=== PATIENT | female | born 1955 | race Caucasian/White ===

== ENCOUNTER 2017-04-18 08:31 | Outpatient (CLI) | payer BC, SELFPAY ==
--- NOTE | 2017-04-18 09:00 | RAD ---
LEFT HIP THREE VIEWS: History: Left hip pain. FINDINGS/IMPRESSION: Mild degenerative changes are seen. No fracture, dislocation, or bony destruction is identified. POS: [facility]
== END 2017-04-18 08:32 | disposition home or self-care (01) ==
LOC: RAD-FRANK 08:31
PROVIDERS: ATTEND Internal Medicine
DX: M25.552 Pain in left hip (principal); M16.12 Unilateral primary osteoarthritis, left hip

== ENCOUNTER 2018-06-29 17:08 | Emergency (ER) | payer BC ==
[~2018-06-29 17:08] MED LIST: ISOVUE-370 76%-LOCM 1 ML ONE
[2018-06-29] MEDS ORDERED: Acetaminophen 325 MG TAB ONE (17:39)
[2018-06-29 17:53] LABS: #Eosinphils 0.1 thou/uL (0.0-0.7); #Lymphocytes 1.3 thou/uL (1.20-3.40); #Monocytes 0.4 thou/uL (0.11-0.59); #Neutrophils 3.5 thou/uL (1.40-6.50); %Basophils 0.3 % (0.0-1.0); %Eosinophils 1.7 % (0.0-10.0); %Lymphocytes 24.5 % (21.0-51.0); %Monocytes 7.6 % (0.0-10.0); %Neutrophils 65.9 % (42.0-75.0); Hemoglobin 13.2 g/dL (12.0-16.0); Mean Corpuscular HGB CONC 34.9 g/dL (32.0-36.0); Mean Corpuscular Hemoglobin 30.3 pg (27.0-31.0); Mean Corpuscular Volume 86.9 fL (78.0-98.0); Mean Platelet Volume 6.7 fL (7.4-10.4); Platelet Count 238 thou/uL (130-400); RBC Distribution Width 12.7 % (11.5-14.5); Red Blood Cell (RBC) Count 4.36 mill/uL (4.20-5.40); White Blood Cell (WBC) Count 5.4 thou/uL (4.8-10.8)
[2018-06-29 18:15] LABS: ALT (SGPT) 16 U/L (8-55); AST (SGOT) 14 U/L (5-34); Albumin 4.2 g/dL (3.4-4.8); Alkaline Phosphatase 95 U/L (40-150); Anion Gap 12 mmol/L (10-20); BUN (Urea Nitrogen) 21 mg/dL (9.8-20.1); Bilirubin, Total 0.2 mg/dL (0.2-1.2); Calc. Creatinine Clearance 0 mL/min (70-130); Calcium 10.5 mg/dL (7.8-10.44); Carbon Dioxide 26 mmol/L (23-31); Chloride 104 mmol/L (98-107); Estimated GFR-MDRD 71; Globulin 2.7 g/dL (2.4-3.5); Glucose 104 mg/dL (80-115); Potassium 3.6 mmol/L (3.5-5.1); Protein, Total 6.9 g/dL (6.0-8.3); Sodium 138 mmol/L (136-145)
--- NOTE | 2018-06-29 19:50 | CT ---
PRE AND POST CONTRAST CT SOFT TISSUE NECK: History: Evaluate for left carotid swelling. Technique: Pre and post contrast enhanced CT images of soft tissue neck obtained. FINDINGS: There is a 1.3 cm left upper lobe and 1.5 cm right upper lobe lung parenchymal mass. There is extensi ve emphysematous and bullous changes seen in the upper lobes of the lungs. There is a 2.6 x 3.8 cm mass with necrosis in the left hilar region. Additional aortopulmonary window lymphadenopathy also seen. There is a right lung parenchymal mass adjacent to the superior vena cava , diameter measuring 2.8 x 3.2 cm. There is a large right jugular digastric lymph node measuring 2.4 x 2.0 cm with central areas of necr osis. These are all concerning for possible metastatic disease. There is extensive heterogeneity seen in the right and left thyroid lobes. Thyroid malignancy cannot be excluded. There is mild left platysmal thickening. Some edema is seen superficial and deep to the left platysma . The left parotid gland is minimally asymmetrically enlarged and mildly edematous compared to the ri ght parotid gland. No definite evidence of sialolith seen. No definite evidence of significant paroti d mass is seen. Mild parotiditis cannot be excluded. IMPRESSION: 1. Right jugular digastric lymphadenopathy with extensive mediastinal and lung parenchymal masses see n, right dural based intracranial lesion highly concerning for metastisis. In addition, there is hete rogeneity seen in the thyroid lobes bilaterally. ENT and oncologic consultation recommended. POS: [facility]
== END 2018-06-29 21:12 | disposition home or self-care (01) ==
LOC: ERS 17:08
DX: K11.20 Sialoadenitis, unspecified (principal); R91.8 Other nonspecific abnormal finding of lung field; E04.1 Nontoxic single thyroid nodule; I10 Essential (primary) hypertension; E78.5 Hyperlipidemia, unspecified; F17.210 Nicotine dependence, cigarettes, uncomplicated
CPT/HCPCS: 70492; 80053; 85025; 96360; 96361; 99406; Q9966

== ENCOUNTER 2018-06-30 15:25 | Outpatient (CLI) | payer BC ==
--- NOTE | 2018-06-30 16:28 | ULT ---
SOFT TISSUE NECK ULTRASOUND: HISTORY: Enlarged right neck lymph node. Examination is requested to assess for possible access for biopsy vi a ultrasound guidance. COMPARISON: None. CORRELATION: Postcontrast soft tissue neck CT from 06/29/2018. FINDINGS: Targeted sonographic imaging of the right neck does demonstrate the lymph node of concern and is amen able to ultrasound-guided biopsy. The lymph node measures 2.2 x 3 x 2.6 cm. IMPRESSION: Sonographic evidence of enlarged right neck lymph node, which is amenable to ultrasound guided biopsy . POS: [facility]
== END 2018-06-30 15:26 | disposition home or self-care (01) ==
LOC: BICULT 15:25
PROVIDERS: ATTEND Internal Medicine Hematology & Oncology
DX: Z13.89 Encounter for screening for other disorder (principal); R59.0 Localized enlarged lymph nodes
CPT/HCPCS: 76536

== ENCOUNTER 2018-07-07 08:22 | Day surgery (SDC) | payer BC ==
[2018-07-04 15:25] VITALS: BMI 24.7
[2018-07-07 09:23] VITALS: BP 112/70; TEMP 98.1
[2018-07-07] MEDS ORDERED: Sodium Bicarbonate 2.5 MEQ/5 ML VIAL ONE (09:26)
[2018-07-07] MEDS ORDERED: Lidocaine 1% PF 5 ML VIAL ONE (09:26)
--- NOTE | 2018-07-07 12:10 | ULT ---
ULTRASOUND GUIDED FNA MASS RIGHT NECK: HISTORY: CT neck from 06/29/2018 revealed a right submandibular mass, probable adenopathy. Biopsy of this mas s is requested. FINDINGS: Ultrasound of the neck reveals an enlarged heterogeneous thyroid gland, which corresponds to the CT f indings. In the right submandibular region, there is a circumscribed mass, measuring 2.5 cm, with he terogeneity, suggesting some internal necrosis. This corresponds to the enlarged lymph node seen on CT. This mass is sampled using the FNA technique, under ultrasound guidance. Four 25 gauge FNA samples were obtained through the mid portion of this mass, under ultrasound confir mation, and was given to pathology at the bedside. A 5th pass was preformed using a 20 gauge Uma needle. Increased cellular material was obtained using the Uma pass. Dr. Nolasco was present at the bedside and evaluated the tissue for adequacy. There is evidence of ne crosis; however, adequate lesional tissue was obtained. PROCEDURE IN DETAIL: After evaluating the neck with ultrasound, the right neck was prepped and draped in a sterile manner. Local anesthesia was then administered using Lidocaine and bicarbonate under ultrasound guidance. The right submandibular mass was then sampled using the FNA technique, with a 25 gauge needle. Ultra sound confirmed presence of the needle within the mid portion of the mass. Four samples were obtaine d, with each sample using ultrasound guidance and confirmation. A 5th sample was obtained using a 20 gauge Uma needle. Post procedure ultrasound showed no hematoma. The patient tolerated the procedure well, and there were no problems or complications. POS: [facility]
== END 2018-07-07 10:00 | disposition home or self-care (01) ==
LOC: ULT 08:22
PROVIDERS: ATTEND Radiology Diagnostic Radiology
PROC: BW4FZZZ Ultrasonography of Neck (ICD-10-PCS; principal; 2018-07-07)
PROC: 07B13ZX Excision of Right Neck Lymphatic, Percutaneous Approach, Diagnostic (ICD-10-PCS; principal; 2018-07-07)
DX: C96.9 Malignant neoplasm of lymphoid, hematopoietic and related tissue, unspecified (principal); I10 Essential (primary) hypertension; E04.9 Nontoxic goiter, unspecified; E78.00 Pure hypercholesterolemia, unspecified; F41.9 Anxiety disorder, unspecified; F32.9 Major depressive disorder, single episode, unspecified; F17.210 Nicotine dependence, cigarettes, uncomplicated; M19.90 Unspecified osteoarthritis, unspecified site; Z90.5 Acquired absence of kidney; Z98.890 Other specified postprocedural states; Z79.899 Other long term (current) drug therapy
CPT/HCPCS: 38505; 88172; 88173; 88177; 88305; 88341; 88342; J2001

== ENCOUNTER 2018-07-21 09:51 | Outpatient (CLI) | payer BC ==
--- NOTE | 2018-07-21 11:27 | CT ---
FCT thorax with contrast CT abdomen with contrast CT pelvis with contrast 07/21/2018 HISTORY: 63-year-old female with malignant neoplasm of left kidney. Restaging. COMPARISON: No prior CT of chest. There is prior CT of abdomen and pelvis of 07/11/2013. FINDINGS: Cervicothoracic junction: Left and right lobes of thyroid gland are markedly enlarged by multiple nod ules. Lungs: Large bilateral upper lobe bullae, right greater than left. Also centrilobular emphysematous c hanges. Multiple metastatic noncalcified pulmonary nodules bilaterally. The largest mass is a 3 x 2 x 3.5 cm right lower lobe pulmonary mass abutting the right lower lobe bronchial and arterial branches . Nearby there is a right hilar or perihilar 2.2 x 2.2 x 2.2 cm mass. There are numerous other more p eripheral bilateral pulmonary nodules. . Pleura: No pneumothorax or hemothorax. Thoracic aorta: No dissection or rupture. Mediastinum: Several metastatic mediastinal lymph nodes. This includes a 2.5 x 1.5 x 2.5 cm malignant node in the prevascular space. A large, necrotic 4.5 x 2.5 x 3.5 cm mass posterior to the left nicholas tem bronchus. Liver: No metastatic lesions identified. Spleen: Normal Pancreas: Multifocal nodular appearance of the tail, questionable for multiple metastatic masses. No ductal dilation.. Kidneys: Left kidney absent. Surgical clips in left renal bed. No hydronephrosis in right kidney. 2 h eterogeneously enhancing solid right renal tumors adjacent to each other at the midpole. The anterior one is 4.5 x 4.5 x 5.5 cm. The lateral one is 5 x 4 x 4 cm. Adrenals: Large 3.5 x 4.5 x 4 cm necrotic right adrenal tumor. Left adrenal gland not visualized.. Bladder: Decompressed. Abdominal aorta: No dissection or rupture. Small bowel: No dilation. Colon: Multiple sigmoid diverticula. No adjacent fat stranding. Free air: None. Free fluid: None. Skeleton: No obvious osseous metastasis identified. IMPRESSION: 1. Extensive pulmonary metastases. 2. Large mediastinal and hilar metastatic malignant lymphadenopathy. 3. Moderately large, necrotic right adrenal malignant tumor. Probably metastasis. 4. There are 2 large malignant appearing right renal tumor masses: Either primary renal cell carcinom as or metastases. 5. Multinodular, heterogeneous attenuation appearance of pancreatic tail, which could represent metas tases or primary neoplasm. 6. Severe panlobular emphysema. 7. Thyromegaly due to numerous nodules. This could be multinodular goiter or thyroid metastases.
--- NOTE | 2018-07-21 14:37 | NM ---
RADIONUCLIDE BONE SCAN: HISTORY: Malignant neoplasm left kidney with metastatic disease. FINDINGS: Heterogeneous uptake involving each shoulder, knee, and ankle has the appearance of degenerative catnu ges. There is also heterogeneous uptake of the lower cervical spine on the posterior images, overlyin g the facets. Left kidney is surgically absent. Uptake within the urinary bladder partially obscures the superior pubic rami. IMPRESSION: Degenerative changes of the cervical spine and peripheral joints. No scintigraphic evidence of blasti c osseous metastasis. Transcribed Date/Time: 07/21/2018 2:59 PM
[2018-07-21] MEDS ORDERED: Iopamidol 370 76% 100 ML VIAL ONE (14:45)
== END 2018-07-21 09:52 | disposition home or self-care (01) ==
LOC: CT 09:51
PROVIDERS: ATTEND Internal Medicine Hematology & Oncology
DX: C64.9 Malignant neoplasm of unspecified kidney, except renal pelvis (principal); C78.00 Secondary malignant neoplasm of unspecified lung; R59.0 Localized enlarged lymph nodes; C79.70 Secondary malignant neoplasm of unspecified adrenal gland; J43.9 Emphysema, unspecified; E01.0 Iodine-deficiency related diffuse (endemic) goiter; M47.812 Spondylosis without myelopathy or radiculopathy, cervical region
CPT/HCPCS: 71260; 74177; 78306; A9503

== ENCOUNTER 2018-07-25 05:50 | Day surgery (SDC) | payer BC ==
[2018-07-24 11:39] VITALS: BMI 24.3
--- NOTE | 2018-07-24 14:45 | HP ---
HISTORY OF PRESENT ILLNESS: Milka Gonzalez is a 63-year-old female patient with metastatic renal cell carcinoma status post left nephrectomy in 2004, now with metastatic renal cell carcinoma by lymph node biopsy submandibular right, with recent scans revealing tumor in the right kidney, neck, thyroid, bilateral pulmonary. The patient is an [employer]. She works with nursing homes. Plan is to place a MediPort low-profile IV sedation local. PAST MEDICAL HISTORY: Hypertension, elevated cholesterol, arthritis, anxiety, depression, left renal cell carcinoma status post left nephrectomy in 2004. PAST SURGICAL HISTORY: Left nephrectomy 2004, left flank incision, 1975 and 1977. SOCIAL HISTORY: Tobacco less than 1/2 pack per day, alcohol rarely socially. MEDICATIONS: 1. Xanax. 2. Amlodipine. 3. Ambien. 4. Ultram. ALLERGIES: NONE. FAMILY HISTORY: Noncontributory. REVIEW OF SYSTEMS: Noncontributory. Up to date on colonoscopies. PHYSICAL EXAMINATION: VITAL SIGNS: 158 pounds, 5 feet 7 inches, 137/68, 77, 96.8 degrees. HEAD, EARS, EYES, NOSE AND THROAT: Unremarkable. LUNGS: Clear to auscultation. CARDIAC: Regular rate and rhythm without murmur or gallop. ABDOMEN: Soft and nontender. Left upper quadrant flank incision from the nephrectomy, well healed. No evident hernias. ASSESSMENT: Metastatic renal cell carcinoma. PLAN: MediPort placement. She understands the risks, benefits, and consents. She is followed by Dr. Garrett. She is also followed by Dr. Villalobos. Job ID: [id number]
[2018-07-25] MEDS ORDERED: PROPOFOL 20 ML ONE (06:22)
[2018-07-25] MEDS ORDERED: Lidocaine 2% PF 5 ML VIAL ONE (06:40)
[2018-07-25] MEDS ORDERED: Heparin 5,000 UNITS/ML VIAL ONE (06:40)
[2018-07-25] MEDS ORDERED: Bupivacaine HCl 0.5%/Epinephrine 1:200,000/PF 30 ml Vial ONE (06:40)
--- NOTE | 2018-07-25 08:17 | RAD ---
RADIOGRAPH CHEST 1 VIEW: Date: 07/25/2018. Time: 7:58 a.m. HISTORY: A 63-year-old female status post MediPort placement. COMPARISON: 08/14/2010. FINDINGS: There is a new right subclavian implantable vascular access port with distal tip overlying the SVC. No evidence of pneumothorax. Hyperinflation bilaterally, and hyperlucency of right upper lobe, consi stent with COPD. No consolidation. Cardiac size at upper limits of normal. IMPRESSION: 1. Right-sided implantable vascular access port placement. 2. Emphysema. 3. No pneumothorax. JN [] POS: [facility]
--- NOTE | 2018-07-25 13:18 | OP ---
DATE OF PROCEDURE: 07/25/2018 PREOPERATIVE DIAGNOSIS: Metastatic renal cell carcinoma in need of antineoplastic chemotherapy access. POSTOPERATIVE DIAGNOSIS: Metastatic renal cell carcinoma in need of antineoplastic chemotherapy access. PROCEDURE PERFORMED: Right subclavian vein low-profile MediPort. ANESTHESIA: TIVA, local of 0.5% Marcaine with epinephrine 30 mL mixed with 2% Xylocaine. Fluoroscopy used. DESCRIPTION OF PROCEDURE: The patient was taken to the operating room, where under intravenous sedation, neck and chest were prepared with ChloraPrep and draped in routine fashion. Local anesthetic mixture was infiltrated into the skin and subcutaneous tissue about the operative site. Trocar catheter was cannulated in the subclavian vein. Right infraclavicular approach and J-wire threaded, trocar catheter removed, skin was incised and enlarged sharply creating a pocket for the MediPort, low-profile. Dilator and Peel-Away sheath were placed over the J-wire in superior vena cava. Dilator and J-wire were removed. Catheter was placed through the Peel-Away sheath. Fluoroscopically, the catheter tip was placed in optimal position as a Peel-Away sheath was removed. Catheter tailored to length, connected to the MediPort, placed in subcutaneous pocket and secured with 2 interrupted sutures of 3-0 Prolene and subcutaneous tissue was approximated with 3-0 Monocryl, skin with subdermal 4-0 Monocryl. Final fluoroscopic images revealed good MediPort and line placement. MediPort was accessed with a Walsh needle, aspirated blood, flushed with heparinized saline solution. Job ID: [id number]
[2018-07-25] MEDS ORDERED: PROPOFOL 200 MG/20 ML VIAL ONE (17:11)
[2018-07-25] MEDS ORDERED: Lidocaine 1% PF 5 ML VIAL ONE (17:11)
== END 2018-07-25 08:45 | disposition home or self-care (01) ==
LOC: SDC 05:50
PROVIDERS: ATTEND Specialist
PROC: 0JH63WZ Insertion of Totally Implantable Vascular Access Device into Chest Subcutaneous Tissue and Fascia, Percutaneous Approach (ICD-10-PCS; principal; 2018-07-25)
DX: C64.2 Malignant neoplasm of left kidney, except renal pelvis (principal); C78.02 Secondary malignant neoplasm of left lung; C78.01 Secondary malignant neoplasm of right lung; C79.01 Secondary malignant neoplasm of right kidney and renal pelvis; C77.0 Secondary and unspecified malignant neoplasm of lymph nodes of head, face and neck; F17.210 Nicotine dependence, cigarettes, uncomplicated; I10 Essential (primary) hypertension; E78.00 Pure hypercholesterolemia, unspecified; M19.90 Unspecified osteoarthritis, unspecified site; F41.9 Anxiety disorder, unspecified; F32.9 Major depressive disorder, single episode, unspecified; G47.00 Insomnia, unspecified; E78.2 Mixed hyperlipidemia; Z79.899 Other long term (current) drug therapy; Z88.8 Allergy status to other drugs, medicaments and biological substances; Z90.5 Acquired absence of kidney
CPT/HCPCS: 36415; 71045; 80053; 82248; 83615; 84100; 84436; 84443; 84550; C1788; J0670; J0690; J1642; J1644; J2001; J2704

== ENCOUNTER 2018-10-09 10:56 | Outpatient (CLI) | payer BC ==
--- NOTE | 2018-10-09 11:22 | RAD ---
EXAM: Two views chest PROVIDED CLINICAL HISTORY: Cough, metastatic lung disease. Shortness of breath. COMPARISON: 07/25/2018. FINDINGS: A right subclavian Mediport catheter remains in place unchanged in position. The cardiac silhouette a nd pulmonary vasculature are within normal limits. Scattered mild chronic lung changes are again seen, and there are emphysematous changes again seen within the upper lobes bilaterally greater on th e right. There is a pulmonary nodule seen within the region of the lingula and nodular densities seen at each lung base suggesting pulmonary nodules related to metastatic disease. There is masslike prominence of each hilar region as well as the right infrahilar region likely related to lymphadenopathy. No obvious lytic or sclerotic osseous lesion is appreciated. Degenerative changes no nargis in the spine. Vascular calcific lesions are seen in thoracic aorta. Surgical clips overlie the left upper quadrant. IMPRESSION: 1. Metastatic disease with bilateral pulmonary nodules at each lung base and in the lingula with asso ciated bilateral hilar lymphadenopathy in addition to a mass in the right infrahilar region also possibly represent an enlarged lymph node versus a parenchymal mass. 2. Chronic lung changes and COPD.
== END 2018-10-09 10:57 | disposition home or self-care (01) ==
LOC: BICRAD 10:56
PROVIDERS: ATTEND Internal Medicine Hematology & Oncology
DX: R06.02 Shortness of breath (principal); C64.2 Malignant neoplasm of left kidney, except renal pelvis
CPT/HCPCS: 36415; 71046; 80053; 82248; 83615; 84100; 84436; 84443; 84550

== ENCOUNTER 2018-10-27 08:41 | Outpatient (CLI) | payer BC ==
--- NOTE | 2018-10-27 10:32 | CT ---
CT chest with IV contrast CT abdomen and pelvis with IV contrast HISTORY: Left renal neoplasm with nephrectomy. Metastasis to right kidney. Restaging. COMPARISON: 07/21/2018. FINDINGS: Lungs remain hyperinflated. Multiple masses throughout each lung are again demonstrated. Ch est is unchanged in size and appearance from the previous exam. The largest are at the right infrahilar region, measuring 2.9 and 2.2 cm greatest diameters. Widespread mediastinal adenopathy is also stable. The largest and most prominent areas remain necroti c centrally. Largest is at the left infrahilar level, measuring up to 4.3 cm x 2.4 cm greatest diameters. Heterogeneous enlargement of the inferior aspect of the thyroid gland with substernal extension is si milar in appearance to the prior study and likely represents a goiter. Nodular masslike prominence of the pancreatic tail is unchanged in size and appearance, measuring 3.2 cm greatest oblique diameter on the axial images. Left kidney is surgically absent. The partially necrotic mass at the left adrenal gland now measures 4.2 cm length by 4.3 cm width by 3 .6 cm depth (previously 4.5 cm x 4.0 cm x 3.5 cm). The more superolateral portion of the partially necrotic right superior pole renal masses is now 5.5 cm x 4.5 cm x 4.7 cm (previously 5.0 cm x 4.1 cm x 4.0 cm). The more inferior and anterior mass is now 4.6 cm x 4.3 cm 4.2 cm (4 cm x 4.4 cm x 4.2 cm). Slightly enlarged lymph nodes within the retroperitoneum are unchanged. Urinary bladder is decompress ed. No evidence of bowel obstruction. Degenerative changes lumbar spine. IMPRESSION: Slight interval enlargement of the partially necrotic right renal masses, as detailed abo ve. Extensive metastatic disease involving the lungs, mediastinal lymph nodes, and left adrenal gland and the heterogeneous low density pancreatic mass are stable. No new abnormalities are demonstrated.
[2018-10-27] MEDS ORDERED: ISOVUE-370 76%-LOCM 1 ML ONE (13:40)
== END 2018-10-27 08:42 | disposition home or self-care (01) ==
LOC: BICCT 08:41
PROVIDERS: ATTEND Internal Medicine Hematology & Oncology
DX: C64.2 Malignant neoplasm of left kidney, except renal pelvis (principal); C78.00 Secondary malignant neoplasm of unspecified lung; C79.72 Secondary malignant neoplasm of left adrenal gland; C77.1 Secondary and unspecified malignant neoplasm of intrathoracic lymph nodes; K86.89 Other specified diseases of pancreas; N28.89 Other specified disorders of kidney and ureter
CPT/HCPCS: 71260; 74177; Q9966

== ENCOUNTER 2018-11-24 21:16 | Inpatient (IN) | payer BC ==
[2018-11-24] MEDS ORDERED: Levothyroxine Sodium 25 MCG TAB PO SCH (22:15)
[2018-11-24 23:44] LABS: Anion Gap 13 mmol/L (10-20); BUN (Urea Nitrogen) 10 mg/dL (9.8-20.1); Calc. Creatinine Clearance 0 mL/min (70-130); Calcium 9.2 mg/dL (7.8-10.44); Carbon Dioxide 20 mmol/L (23-31); Chloride 86 mmol/L (98-107); Estimated GFR-MDRD Greater than 90; Magnesium 1.6 mg/dL (1.6-2.6); Potassium 3.9 mmol/L (3.5-5.1)
[2018-11-25 00:04] LABS: Glucose 57 mg/dL (80-115); Sodium 115 mmol/L (136-145)
--- NOTE | 2018-11-25 00:24 | CON ---
DATE OF CONSULTATION: REASON FOR CONSULTATION: Hyponatremia. HISTORY OF PRESENT ILLNESS: A 63-year-old female who presented to the hospital with feeling weak, was noted to have a sodium of 115 and I was consulted. The patient has been told to eat excessive salt diet to help with hyponatremia. The patient has a normal creatinine. The patient is known to have malignancy and has a very poor appetite and has not had any protein intake. PAST MEDICAL HISTORY: Significant for metastatic renal cell carcinoma on immunotherapy, metastatic renal cell cancer, history of hypertension, history of hyperlipidemia, history of , history of nephrectomy of the left side, history of chronic hyponatremia, history of hypothyroidism. SOCIAL HISTORY: No alcohol or drug use. FAMILY HISTORY: Negative for ESRD. ALLERGIES: REVIEWED. REVIEW OF SYSTEMS: A 15-point review of system was performed negative except for noted above. GENERAL: HEAD: NECK: No swelling or lumps. NOSE: No epistaxis or discharge. EYES: No diplopia or pain. RESPIRATORY: CARDIOVASCULAR: GASTROINTESTINAL: /[employer] TECHNICIAN: MUSCULOSKELETAL: No joint pain. NEUROPSYCHIATIC SYSTEMS: No suicidal ideation. No ideation. SKIN: Denies any rash or ulcer. CONSTITUTIONAL: No fever or chills. General: The patient is awake and alert. VITAL SIGNS: Afebrile, pulse 83, breathing 16, blood pressure 105/75. PHYSICAL EXAMINATION: GENERAL APPEARANCE AND MENTAL STATUS: Fair. HEAD/NECK: Normocephalic. Atraumatic. EYES: EOMI. No deformity. EARS: Clear. No ulcers. NOSE: Intact. No lesions. MOUTH: Clear. No discharge. THROAT: Clear. No exudate. LUNGS: Clear. No crackles. CARDIAC: S1, S2. No rub. ABDOMEN: Benign. Bowel sounds positive. GENITALIA/RECTUM: Breen absent. BACK/EXTREMITIES: Edema 0+. NEUROLOGICAL: Alert and motor intact. SKIN: LYMPHATICS: NEUROLOGICAL: The patient is intact. LABORATORY DATA: Labs show sodium 115, creatinine is 0.7. CKD stage 2 stable, hyponatremia, most likely because of poor protein intake as well as SIADH. We would recommend 800 mL fluid restriction and checking sodium every 6 hours. We would not correct sodium more than 6 mEq in 24 hours. Please call me, if the sodium corrects. ASSESSMENT: 1. Hypertension, stable. 2. Medication based on glomerular filtration rate, appropriate. 3. Hypothyroidism. I would recommend extra dose of Synthroid and rechecking TSH in the morning. 4. Risks versus benefits . Primary care team has been advised of the above recommendations. Job ID: [id number]
[2018-11-25] MEDS ORDERED: Ondansetron ODT 8 MG TAB PO PRN (00:29)
[2018-11-25] MEDS ORDERED: Zolpidem Tartrate 5 MG TAB PO PRN (00:30)
[2018-11-25] MEDS: traMADol HCl 50 MG TAB PO SCH ×3 (02:32→20:22)
[2018-11-25 05:22] LABS: Sodium 114 mmol/L (136-145)
[2018-11-25] MEDS ORDERED: Levothyroxine Sodium 25 MCG TAB PO SCH (06:00)
[2018-11-25 08:56] LABS: #Eosinphils 0.3 thou/uL (0.0-0.7); #Lymphocytes 1.3 thou/uL (1.20-3.40); #Monocytes 0.5 thou/uL (0.11-0.59); #Neutrophils 2.3 thou/uL (1.40-6.50); %Eosinophils 6.2 % (0.0-10.0); %Lymphocytes 29.4 % (21.0-51.0); %Monocytes 11.6 % (0.0-10.0); %Neutrophils 51.8 % (42.0-75.0); Hemoglobin 12.1 g/dL (12.0-16.0); Mean Corpuscular HGB CONC 35.7 g/dL (32.0-36.0); Mean Corpuscular Hemoglobin 28.9 pg (27.0-31.0); Mean Corpuscular Volume 80.9 fL (78.0-98.0); Mean Platelet Volume 5.9 fL (7.4-10.4); Platelet Count 268 thou/uL (130-400); RBC Distribution Width 14.2 % (11.5-14.5); White Blood Cell (WBC) Count 4.4 thou/uL (4.8-10.8)
[2018-11-25] MEDS: Tolvaptan 15 MG TAB PO SCH (08:58)
[2018-11-25] MEDS ORDERED: ALPRAZolam 0.5 MG TAB PO SCH (09:00)
[2018-11-25 09:21] LABS: Anion Gap 13 mmol/L (10-20); BUN (Urea Nitrogen) 9 mg/dL (9.8-20.1); Calc. Creatinine Clearance 0 mL/min (70-130); Calcium 9.9 mg/dL (7.8-10.44); Carbon Dioxide 23 mmol/L (23-31); Chloride 84 mmol/L (98-107); Estimated GFR-MDRD 88; Glucose 63 mg/dL (80-115); Potassium 4.1 mmol/L (3.5-5.1)
[2018-11-25 09:29] LABS: Sodium 116 mmol/L (136-145)
[2018-11-25 09:37] LABS: Free T4 (Free Thyroxine) 0.51 ng/dL (0.70-1.48); Thyroid Stimulating Hormone 27.7808 uIU/mL (0.35-4.94)
[2018-11-25] MEDS ORDERED: traMADol HCl 50 MG TAB PO SCH (10:45)
[2018-11-25 12:24] LABS: Anion Gap 10 mmol/L (10-20); BUN (Urea Nitrogen) 9 mg/dL (9.8-20.1); Calc. Creatinine Clearance 91 mL/min (70-130); Carbon Dioxide 23 mmol/L (23-31); Chloride 87 mmol/L (98-107); Estimated GFR-MDRD 84; Glucose 72 mg/dL (80-115); Potassium 3.8 mmol/L (3.5-5.1)
[2018-11-25 12:45] LABS: Sodium 116 mmol/L (136-145)
--- NOTE | 2018-11-25 16:35 | PRG ---
DATE OF SERVICE: 11/25/2018 SUBJECTIVE: A 63-year-old female being seen for hyponatremia. The patient denies nausea, vomiting, or chest pain. OBJECTIVE: CONSTITUTIONAL: The patient is awake and alert. VITAL SIGNS: Afebrile, pulse 82, breathing 16, and blood pressure 107/71. GENERAL APPEARANCE AND MENTAL STATUS: Fair. HEAD/NECK: Normocephalic. Atraumatic. EYES: EOMI. No deformity. EARS: Clear. No ulcers. NOSE: Intact. No lesions. MOUTH: Clear. No discharge. THROAT: Clear. No exudate. LUNGS: Clear. No crackles. CARDIAC: S1, S2. No rub. ABDOMEN: Benign. Bowel sounds positive. GENITALIA/RECTUM: Breen absent. BACK/EXTREMITIES: Edema 0+. NEUROLOGICAL: Alert and motor intact. SKIN: LYMPHATICS: LABORATORY DATA: Labs reviewed. ASSESSMENT AND PLAN: Hyponatremia, stable. Hypo-osmolality, stable. Hypothyroidism, continue Synthroid. Medication based on GFR appropriate. Job ID: [id number]
[2018-11-25 18:20] LABS: Sodium 120 mmol/L (136-145)
[2018-11-25] MEDS: Mirtazapine 15 MG TAB PO SCH (20:20)
[2018-11-25] MEDS: ALPRAZolam 0.5 MG TAB PO PRN (20:20)
[2018-11-25 23:12] LABS: Sodium 120 mmol/L (136-145)
[2018-11-26] MEDS: Levothyroxine Sodium 50 MCG TAB PO SCH (06:41)
[2018-11-26] MEDS: traMADol HCl 50 MG TAB PO SCH ×2 (08:32→20:25)
[2018-11-26] MEDS: Tolvaptan 15 MG TAB PO SCH (08:33)
[2018-11-26 10:04] LABS: Anion Gap 13 mmol/L (10-20); BUN (Urea Nitrogen) 12 mg/dL (9.8-20.1); Calc. Creatinine Clearance 77 mL/min (70-130); Calcium 10.3 mg/dL (7.8-10.44); Carbon Dioxide 23 mmol/L (23-31); Chloride 90 mmol/L (98-107); Estimated GFR-MDRD 71; Glucose 77 mg/dL (80-115); Sodium 122 mmol/L (136-145)
--- NOTE | 2018-11-26 11:17 | PRG ---
DATE OF SERVICE: 11/26/2018 SUBJECTIVE: A 63-year-old female, being seen for hyponatremia. The patient denies nausea, vomiting, or chest pain. OBJECTIVE: GENERAL: The patient is awake and alert. VITAL SIGNS: Afebrile, pulse 84, breathing 16, blood pressure 104/62. GENERAL APPEARANCE AND MENTAL STATUS: Fair. HEAD/NECK: Normocephalic. Atraumatic. EYES: EOMI. No deformity. EARS: Clear. No ulcers. NOSE: Intact. No lesions. MOUTH: Clear. No discharge. THROAT: Clear. No exudate. LUNGS: Clear. No crackles. CARDIAC: S1, S2. No rub. ABDOMEN: Benign. Bowel sounds positive. GENITALIA/RECTUM: Breen absent. BACK/EXTREMITIES: Edema 0+. NEUROLOGICAL: Alert and motor intact. SKIN: LYMPHATICS: LABORATORY DATA: Show sodium 122. ASSESSMENT AND RECOMMENDATIONS: Chronic kidney disease, stage 2, stable. Hyponatremia, improving. Recommend 1.2 L fluid restriction. Medication based on GFR, appropriate. No indication for hypertonic saline. No need for further [facility], just continue with fluid restriction as an outpatient. Job ID: [id number]
--- NOTE | 2018-11-26 12:37 | CON ---
DATE OF CONSULTATION: REASON FOR CONSULTATION: Metastatic renal cell carcinoma, hyponatremia. HISTORY OF PRESENT ILLNESS: A 63-year-old female with metastatic renal cell carcinoma, currently on nivolumab, presenting to the hospital with hyponatremia. The patient is status post Opdivo and Yervoy, and is currently on Opdivo alone, last received on November 05. On October 31, the patient's sodium was 135, and on November 13, it was 116. At this time, she was evaluated in the clinic and given IV fluids due to poor nutritional status and her sodium was 123 the next day. She returned on November 17, sodium was 119. She returned daily for IV fluids and her sodium slowly improved to 123 by November 20, it was 120 on November 21. Over the weekend, she came in on November 24, and her sodium had again dropped to 115. She has been having trouble with memory problems, very fatigued, not eating or drinking, is very malnourished; however, her weight has remained stable. She denies any other complaints. 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 TSH up to 47 and she was started on Synthroid; however, she self discontinued this as she said it made her head feel funny. Her TSH has again risen and she was started on a lower dose of Synthroid, which has currently been given while in the hospital. She has been evaluated by Dr. Logan, and was considered for admission to the ICU, but was admitted to tele and has been on fluid restriction plus Samsca with improvement in her sodium level up to 122 today. The patient states her mood has slightly improved and appetite is starting to come back since admission. REVIEW OF SYSTEMS: Ten-point review of systems is negative, except as per HPI. PAST MEDICAL HISTORY: Renal cell carcinoma, hypertension, high cholesterol, anxiety, depression, arthritis. PAST SURGICAL HISTORY: Nephrectomy in 2004, left flank incision, C-sections 1975 and 1977. FAMILY HISTORY: Cancer in her father and uncle. The patient is a current smoker, one pack per day for 45 years and a social drinker. ALLERGIES: NO KNOWN DRUG ALLERGIES. MEDICATIONS: Reviewed. PHYSICAL EXAMINATION: VITAL SIGNS: Temperature 97.9, pulse 85, respirations 18, saturating 97% on room air, blood pressure 98/56. GENERAL APPEARANCE: The patient is lying in bed, in no acute distress. HEENT: Normocephalic and atraumatic. CARDIAC: S1 and S2. RESPIRATIONS: Clear to auscultation and nonlabored. ABDOMEN: Soft, nondistended, and nontender. EXTREMITIES: No edema. SKIN: no rash NEUROLOGIC: Cranial nerves 2 through 12 grossly are intact. PSYCHIATRIC: The patient is awake and alert, oriented to person and time, but not place. She keeps stating she has been in a different town. LABORATORY DATA: White blood cells 4.4, hemoglobin 12.1, platelets 268. Sodium as low as 114 on admission to the hospital, currently 122. BUN 12, creatinine 0.82 , glucose 77, calcium 10.3. TSH 27.78. ASSESSMENT AND PLAN: A 63-year-old female with metastatic renal cell carcinoma, status post Yervoy and Opdivo, currently on Opdivo maintenance status post one cycle with hypothyroidism and worsening hyponatremia. The patient is currently on Samsca and fluid restriction with a slow improvement in her sodium from 114 up to 122 over approximately 30 hours, which is appropriate. Continue monitoring the patient's sodium levels and fluid restriction and Samsca as per Dr. Logan. The patient's appetite has improved and memory is starting to slowly improve, and we will continue to monitor that with correction of her sodium levels. We will try to get her Opdivo in the hospital if possible, otherwise we will schedule her as an outpatient. Job ID: [id number] MTDD
[2018-11-26 15:35] LABS: Anion Gap 13 mmol/L (10-20); BUN (Urea Nitrogen) 15 mg/dL (9.8-20.1); Calc. Creatinine Clearance 72 mL/min (70-130); Calcium 10.6 mg/dL (7.8-10.44); Carbon Dioxide 23 mmol/L (23-31); Chloride 88 mmol/L (98-107); Estimated GFR-MDRD 66; Glucose 82 mg/dL (80-115); Potassium 3.9 mmol/L (3.5-5.1); Sodium 120 mmol/L (136-145)
[2018-11-26] MEDS: Mirtazapine 15 MG TAB PO SCH (20:24)
[2018-11-26] MEDS: ALPRAZolam 0.5 MG TAB PO PRN (20:26)
--- NOTE | 2018-11-27 01:25 | HP ---
CHIEF COMPLAINT: Low sodium. HISTORY OF PRESENT ILLNESS: Ms. Gonzalez is a 63-year-old female with past medical history of hypertension, hyperlipidemia, and metastatic renal cell carcinoma, came because of low sodium. The patient was seen in the oncologist's office. She was found to have low sodium, so she was sent to the hospital. According to the patient, the patient was going to oncologist regarding her cancer and she was on a chemo. Her sodium was found to be around 116 a week ago. She was started on IV fluids almost daily. Sodium improved to 123, but again on rechecking, it dropped again, so she was sent to the hospital. In the ER, the patient was found to have a sodium of 115 and ER physician said the patient is not symptomatic. She was very stable. She consulted rack room worker who suggested fluid restrictions and monitoring of sodium, so she is admitted for further evaluation and management. Currently, the patient feels just fine. No shortness of breath. No chest pain. No headache. No dizziness, but she states she has not been eating well for the last few days, not drinking enough fluids also, but she was getting IV fluids at the oncologist's office. PAST MEDICAL HISTORY: 1. Hypertension. 2. Hyperlipidemia. 3. Metastatic renal cell carcinoma. PAST SURGICAL HISTORY: Status post , status post nephrectomy, left. CURRENT MEDICATIONS: The patient is on 1. Xanax 0.5 b.i.d. 2. Ambien 10 mg at bedtime. 3. Tramadol 50 q.i.d. p.r.n. 4. Zofran p.r.n. 5. Levothyroxine 25 mcg daily. ALLERGIES: NKDA. FAMILY HISTORY: Nothing contributory. SOCIAL HISTORY: The patient lives her . No history of alcohol intake. Used to smoke one pack a day. REVIEW OF SYSTEMS: CARDIOVASCULAR: No chest pain. No shortness of breath. RESPIRATORY: No fever or cough. GASTROINTESTINAL: No nausea, vomiting, or abdominal pain. CENTRAL NERVOUS SYSTEM: No headache. No dizziness. PHYSICAL EXAMINATION: GENERAL: The patient is alert, awake, oriented x3. VITAL SIGNS: Temperature 98, pulse 80, respirations 20, blood pressure 108/80. HEENT: Head is normocephalic, atraumatic. Pupils are equal and reactive. Nasopharynx is pale and dry. Hard and soft palate. No lesions. SKIN: Turgor decreased. NECK: Supple. No JVD. LUNGS: Bilateral air entry present. No rales, no rhonchi. HEART: S1 and S2, regular. ABDOMEN: Soft. No distention. No tenderness. Normal bowel sounds. RECTAL: Deferred. CENTRAL NERVOUS SYSTEM: The patient is alert, awake, oriented x3. Motor system , power 4/5 in all extremities. Deep tendon reflex 2+ bilaterally. Plantars downgoing. Sensory intact. LABORATORY DATA: CBC shows WBC 4.4, hemoglobin 12, hematocrit 33, platelets 268. Metabolic panel; sodium 115, potassium 3.9, chloride 100, CO2 of 20, BUN 10, creatinine 0.6, glucose 57. Urinalysis negative. EKG, chest x-ray not done. ASSESSMENT: 1. Hyponatremia. 2. Renal cell carcinoma, metastatic. 3. Hypertension. 4. Hyperlipidemia. 5. Anxiety disorder. 6. History of insomnia. PLAN: 1. Vital signs q.4 hours. 2. Activity as tolerated. 3. Allergies, NKDA. 4. Hep-Lock. 5. Fluid restriction. 6. Close monitoring of serum sodium. 7. Continue her home medications. 8. Increase Synthroid to 50 mcg daily. We will obtain labs in the morning. Job ID: [id number] [facility]
[2018-11-27 05:46] LABS: Anion Gap 13 mmol/L (10-20); BUN (Urea Nitrogen) 18 mg/dL (9.8-20.1); Calc. Creatinine Clearance 57 mL/min (70-130); Calcium 10.2 mg/dL (7.8-10.44); Carbon Dioxide 23 mmol/L (23-31); Chloride 90 mmol/L (98-107); Estimated GFR-MDRD 50; Glucose 79 mg/dL (80-115); Potassium 4.1 mmol/L (3.5-5.1); Sodium 122 mmol/L (136-145)
[2018-11-27] MEDS: Levothyroxine Sodium 50 MCG TAB PO SCH (07:04)
[2018-11-27] MEDS: traMADol HCl 50 MG TAB PO SCH ×2 (09:09→21:09)
[2018-11-27] MEDS: Tolvaptan 15 MG TAB PO SCH (09:13)
--- NOTE | 2018-11-27 10:02 | PDOC.MOPN ---
Interval History: Confused. Not eating much. - Vital Signs Vital Signs: Vital Signs (12 hours) Temp Pulse Resp BP BP Pulse Ox 11/27/18 07:00 98.3 F 80 18 84/51 L 97 11/27/18 03:15 98.8 F 84 19 85/56 L 93 L Weight Weight 146 lb - Physical Exam General: Other (disoriented) HEENT: Atraumatic Lungs: Clear to auscultation Cardiovascular: Regular rate Abdomen: Normal bowel sounds Extremities: No clubbing Skin: No rashes Neurological: Normal speech Psych/Mental Status: Mental status NL - Labs Result Diagrams: 11/25/18 08:21 11/27/18 04:38 Lab results: Laboratory Results - last 24 hr 11/27/18 05:08: POC Glucose 87 11/27/18 04:38: Sodium 122 L, Potassium 4.1, Chloride 90 L, Carbon Dioxide 23, Anion Gap 13, BUN 18, Creatinine 1.11 H, Estimated GFR (MDRD) 50, Glucose 79 L, Calcium 10.2 11/26/18 20:15: POC Glucose 119 H 11/26/18 17:02: POC Glucose 91 11/26/18 14:51: Sodium 120 L, Potassium 3.9, Chloride 88 L, Carbon Dioxide 23, Anion Gap 13, BUN 15, Creatinine 0.87, Estimated GFR (MDRD) 66, Glucose 82, Calcium 10.6 H 11/26/18 11:29: POC Glucose 95 11/26/18 09:35: Sodium 122 L, Potassium 4.0, Chloride 90 L, Carbon Dioxide 23, Anion Gap 13, BUN 12, Creatinine 0.82, Estimated GFR (MDRD) 71, Glucose 77 L, Calcium 10.3 11/25/18 20:10: Urine Osmolality 98 L Status: lab reviewed by me A/P - Problem (1) Metastatic renal cell carcinoma Current Visit: Yes Code(s): C64.9 - MALIGNANT NEOPLASM OF UNSP KIDNEY, EXCEPT RENAL PELVIS Status: Chronic (2) Hyponatremia Current Visit: Yes Code(s): E87.1 - HYPO-OSMOLALITY AND HYPONATREMIA Status : Acute - Plan Plan: Hyponatremia managed by Nephrology Continue megace encourge nutrition Hold opdivo for now
[2018-11-27] MEDS ORDERED: Milk Of Magnesia 30 ML UDCUP PO PRN (11:20)
[2018-11-27] MEDS ORDERED: Sodium Chloride 0.9% 500 ML IV SCH (11:30)
--- NOTE | 2018-11-27 11:43 | PRG ---
DATE OF SERVICE: 11/27/2018 SUBJECTIVE: This is a 63-year-old female, being seen for hyponatremia. The patient denies any nausea, vomiting, or chest pain. OBJECTIVE: GENERAL: The patient is awake and alert. VITAL SIGNS: Pulse 75, breathing 16, blood pressure was 84/55. GENERAL APPEARANCE AND MENTAL STATUS: Fair. HEAD/NECK: Normocephalic. Atraumatic. EYES: EOMI. No deformity. EARS: Clear. No ulcers. NOSE: Intact. No lesions. MOUTH: Clear. No discharge. THROAT: Clear. No exudate. LUNGS: Clear. No crackles. CARDIAC: S1, S2. No rub. ABDOMEN: Benign. Bowel sounds positive. GENITALIA/RECTUM: Breen absent. BACK/EXTREMITIES: Edema 0+. NEUROLOGICAL: Alert and motor intact. SKIN: LYMPHATICS: LABORATORY DATA: Reviewed. ASSESSMENT AND PLAN: 1. Chronic kidney disease, stage 2, stable. 2. Hypotension. The patient should have a cortisol level as well as an aldosterone level to evaluate the cause of hypotension. 3. Anemia, stable. 4. Medication based on GFR, appropriate. Job ID: [id number]
[2018-11-27 14:38] LABS: Anion Gap 8 mmol/L (10-20); BUN (Urea Nitrogen) 19 mg/dL (9.8-20.1); Calc. Creatinine Clearance 61 mL/min (70-130); Calcium 10.2 mg/dL (7.8-10.44); Carbon Dioxide 27 mmol/L (23-31); Chloride 92 mmol/L (98-107); Estimated GFR-MDRD 56; Glucose 102 mg/dL (80-115); Potassium 3.7 mmol/L (3.5-5.1); Sodium 123 mmol/L (136-145)
[2018-11-27] MEDS: Mirtazapine 15 MG TAB PO SCH (21:09)
[2018-11-27] MEDS: ALPRAZolam 0.5 MG TAB PO PRN (21:10)
[2018-11-27] MEDS: Hydrocortisone Sod Succ/PF 100 mg/2 ml Vial IVP SCH (21:10)
[2018-11-28] MEDS: Hydrocortisone Sod Succ/PF 100 mg/2 ml Vial IVP SCH ×4 (04:02→20:56)
[2018-11-28] MEDS: Levothyroxine Sodium 50 MCG TAB PO SCH (06:16)
[2018-11-28 09:07] LABS: Anion Gap 10 mmol/L (10-20); BUN (Urea Nitrogen) 23 mg/dL (9.8-20.1); Calc. Creatinine Clearance 57 mL/min (70-130); Calcium 11.8 mg/dL (7.8-10.44); Carbon Dioxide 26 mmol/L (23-31); Chloride 91 mmol/L (98-107); Estimated GFR-MDRD 52; Glucose 251 mg/dL (80-115); Potassium 4.4 mmol/L (3.5-5.1); Sodium 123 mmol/L (136-145)
[2018-11-28] MEDS: traMADol HCl 50 MG TAB PO SCH ×2 (10:08→20:55)
[2018-11-28] MEDS: Polyethylene Glycol 3350 17 GM Packet PO SCH (10:10)
[2018-11-28] MEDS: Tolvaptan 15 MG TAB PO SCH (10:10)
--- NOTE | 2018-11-28 12:11 | PQF ---
JANE MUELLER VENKAT R MD [id number] CLINICAL DOCUMENTATION IMPROVEMENT CLARIFICATION FORM: ICD-10 Updated PLEASE DO AN ADDENDUM TO THE PROGRESS NOTE WITH ANY DOCUMENTATION UPDATES OR ADDITIONS AND CARRY THROUGH TO DC SUMMARY. THANK YOU. DATE: 11/28/2018 ATTN:DR. Katty GARCIA Please exercise your independent, professional judgment in responding to the clarification form. Clinical indicators are provided on the bottom of this form for your review. Please check appropriate box(s): Encephalopathy: Type: [y ] Acute [ ] Subacute [ ] Chronic Etiology: [ ] Hypertensive [ y ] Metabolic [ ] Toxic [ ] Hepatic with Coma [ ] Hepatic w/o Coma [ ] Hypoxic [ ] Septic [ ] Drug induced: [ ] Unspecified [ ] in the setting of underlying dementia [ ] Other (please specify) [ ] Transient Alteration of Awareness [ ] Other diagnosis [ y ] Unable to determine In addition, please specify: Present on Admission (POA): [ ] Yes [ ] No [ ] Unable to determine For continuity of documentation, please document condition throughout progress notes and discharge summary. Thank You. CLINICAL INDICATORS - SIGNS / SYMPTOMS / LABS SODIUM 115>114> 116>116>120> 8/13 PN (THADAREDDY): 2) ENCEPHALOPATHIC 15 PN (DAVID) :CONFUSED. NOT EATING MUCH, HYPONATREMIA 16 PN (THADAREDDY): CONFUSED RISK: DX HYPONATREMIA (THADAREDDY) METASTATIC RENAL CELL CARCINOMA(DAVID) TREATMENTS: NEPHROLOGY CONSULT SERIAL LABS THANK YOU ! DESTINI (This form is maintained as a part of the permanent medical record) 2014 [employer], [employer]. All Rights Reserved [email or web address] [email or web address] [phone] NOMAN
[2018-11-28] MEDS ORDERED: Sodium Chloride 0.9% 1,000 ML IV SCH (13:00)
[2018-11-28] MEDS ORDERED: Furosemide 20 MG/2 ML VIAL SLOW IVP SCH (15:15)
--- NOTE | 2018-11-28 16:32 | PRG ---
DATE OF SERVICE: 11/28/2018 SUBJECTIVE: This is a 63-year-old female, being seen for hyponatremia and renal insufficiency. The patient denies any nausea, vomiting, or chest pain. PHYSICAL EXAMINATION: GENERAL: The patient is awake and alert. VITAL SIGNS: Afebrile, pulse 84, breathing 16, blood pressure 105/60. GENERAL APPEARANCE AND MENTAL STATUS: Fair. HEAD/NECK: Normocephalic. Atraumatic. EYES: EOMI. No deformity. EARS: Clear. No ulcers. NOSE: Intact. No lesions. MOUTH: Clear. No discharge. THROAT: Clear. No exudate. LUNGS: Clear. No crackles. CARDIAC: S1, S2. No rub. ABDOMEN: Benign. Bowel sounds positive. GENITALIA/RECTUM: Breen absent. BACK/EXTREMITIES: Edema 0+. NEUROLOGICAL: Alert and motor intact. SKIN: LYMPHATICS: LABORATORY DATA: Show sodium is 123, creatinine 1.0. ASSESSMENT AND RECOMMENDATIONS: 1. Acute kidney injury, stage 2. 2. . 3. Anemia, stable. 4. Start IV fluids. 5. Medication based on GFR, appropriate. Job ID: [id number]
[2018-11-28 17:26] LABS: Anion Gap 14 mmol/L (10-20); BUN (Urea Nitrogen) 26 mg/dL (9.8-20.1); Calc. Creatinine Clearance 64 mL/min (70-130); Calcium 11.9 mg/dL (7.8-10.44); Carbon Dioxide 25 mmol/L (23-31); Chloride 93 mmol/L (98-107); Estimated GFR-MDRD 60; Glucose 150 mg/dL (80-115); Potassium 4.2 mmol/L (3.5-5.1); Sodium 128 mmol/L (136-145)
[2018-11-28] MEDS: ALPRAZolam 0.5 MG TAB PO PRN (20:55)
[2018-11-28] MEDS: Mirtazapine 15 MG TAB PO SCH (20:55)
[2018-11-29] MEDS: Hydrocortisone Sod Succ/PF 100 mg/2 ml Vial IVP SCH ×4 (02:34→20:59)
[2018-11-29 05:32] LABS: #Lymphocytes 0.9 thou/uL (1.20-3.40); #Monocytes 0.5 thou/uL (0.11-0.59); #Neutrophils 9.1 thou/uL (1.40-6.50); %Eosinophils 0.1 % (0.0-10.0); %Lymphocytes 8.5 % (21.0-51.0); %Monocytes 4.8 % (0.0-10.0); %Neutrophils 86.7 % (42.0-75.0); Hemoglobin 10.8 g/dL (12.0-16.0); Mean Corpuscular HGB CONC 33.8 g/dL (32.0-36.0); Mean Corpuscular Hemoglobin 28.7 pg (27.0-31.0); Mean Corpuscular Volume 84.7 fL (78.0-98.0); Mean Platelet Volume 6.8 fL (7.4-10.4); Platelet Count 246 thou/uL (130-400); RBC Distribution Width 14.6 % (11.5-14.5); Red Blood Cell (RBC) Count 3.78 mill/uL (4.20-5.40); White Blood Cell (WBC) Count 10.5 thou/uL (4.8-10.8)
[2018-11-29 05:47] LABS: Anion Gap 15 mmol/L (10-20); BUN (Urea Nitrogen) 25 mg/dL (9.8-20.1); Calc. Creatinine Clearance 71 mL/min (70-130); Calcium 11.7 mg/dL (7.8-10.44); Carbon Dioxide 23 mmol/L (23-31); Chloride 99 mmol/L (98-107); Estimated GFR-MDRD 67; Glucose 145 mg/dL (80-115); Potassium 4.7 mmol/L (3.5-5.1); Sodium 132 mmol/L (136-145)
[2018-11-29] MEDS: Levothyroxine Sodium 50 MCG TAB PO SCH (06:26)
[2018-11-29] MEDS ORDERED: Zoledronic Acid 4 MG in Sodium Chloride 0.9% 100 ML IVPB SCH (10:00)
[2018-11-29] MEDS: traMADol HCl 50 MG TAB PO SCH ×2 (10:09→20:58)
[2018-11-29] MEDS: Polyethylene Glycol 3350 17 GM Packet PO SCH (10:11)
--- NOTE | 2018-11-29 10:59 | PRG ---
DATE OF SERVICE: 11/29/2018 SUBJECTIVE: A 63-year-old female, being seen for hyponatremia. The patient denies any nausea, vomiting, or chest pain. OBJECTIVE: GENERAL: The patient is awake, alert. VITAL SIGNS: Afebrile, pulse 75, breathing 16, blood pressure 100/58. GENERAL APPEARANCE AND MENTAL STATUS: Fair. HEAD/NECK: Normocephalic. Atraumatic. EYES: EOMI. No deformity. EARS: Clear. No ulcers. NOSE: Intact. No lesions. MOUTH: Clear. No discharge. THROAT: Clear. No exudate. LUNGS: Clear. No crackles. CARDIAC: S1, S2. No rub. ABDOMEN: Benign. Bowel sounds positive. GENITALIA/RECTUM: Breen absent. BACK/EXTREMITIES: Edema 0+. NEUROLOGICAL: Alert and motor intact. SKIN: LYMPHATICS: LABORATORY DATA: Hemoglobin 10.8. Creatinine 0.86, sodium 132. ASSESSMENT AND PLAN: 1. Hyponatremia, resolved. 2. Syndrome of inappropriate secretion of antidiuretic hormone, resolved. 3. Adrenal insufficiency, management per primary team. 4. . 5. Hypercalcemia. We would recommend checking a vitamin D level and consulting Endocrinology. Job ID: [id number]
--- NOTE | 2018-11-29 12:08 | PRG ---
DATE OF SERVICE: 11/29/2018 SUBJECTIVE: The patient feels well, but she continues to be confused. She has insight to her confusion. She also apparently is eating quite well, better than she had been previously. OBJECTIVE: VITAL SIGNS: Temperature is 97.8, pulse 75, respirations are 18, O2 saturations 96% on room air, blood pressure is 100/58. GENERAL APPEARANCE: Age-appropriate female. She is in no distress. She was actually seen in her 's hospital room, where she is visiting along with other family members. She is in a wheelchair, but easily able to get to standing position and appeared to be relatively stable. HEART: Regular rate and rhythm without murmurs, gallops, or rubs. LUNGS: Clear to auscultation bilaterally with no wheezes or rales. ABDOMEN: Soft, nontender, and nondistended. EXTREMITIES: No edema. LABORATORY DATA: White count 10.5, hemoglobin 10.8, and platelets are 246. Sodium 132, potassium 4.7, chloride 99, CO2 of 23, BUN 25, creatinine 0.86, glucose 166, calcium is 11.7. PTH intact is low at 12.8. IMPRESSION AND PLAN: 1. Metastatic renal cell carcinoma with evidence of adrenal metastases, followed by Dr. Garrett. 2. Hypercalcemia. Her calcium has been slightly high in the past, now it is significantly elevated since yesterday. We will give a dose of Zometa. Her PTH is actually low, suggest a possibility of bone disease. She did have a bone scan four months ago, which did not reveal any evidence of metastases. We will repeat that now. She also has calcitriol levels ordered and she will get a dose of Zometa today. 3. Adrenal insufficiency. She has evidence of adrenal metastases at least unilaterally. Her cortisol level is quite low. She is now on hydrocortisone IV. We will change that to p.o. and continue to monitor vital signs, sodium levels. 4. Hypothyroidism. The patient is on supplementation, however, levels here indicate that it was subtherapeutic and her dose has been increased. 5. Hyponatremia. The patient has been receiving tolvaptan through yesterday. Her adrenal insufficiency has been addressed and her sodium appears to be improving. 6. Metabolic encephalopathy. The patient has mild metabolic encephalopathy. The etiology at this point is unclear. She does have good insight to it and this could be based on her hyponatremia or on the hypercalcemia at this point. She seems to be tolerating it fairly well. We will continue to follow as we resolve her metabolic issues. Job ID: [id number]
[2018-11-29] MEDS: ALPRAZolam 0.5 MG TAB PO PRN (20:59)
[2018-11-29] MEDS: Mirtazapine 15 MG TAB PO SCH (20:59)
[2018-11-30] MEDS: Hydrocortisone Sod Succ/PF 100 mg/2 ml Vial IVP SCH ×3 (03:22→15:01)
[2018-11-30 05:28] LABS: #Lymphocytes 0.7 thou/uL (1.20-3.40); #Monocytes 0.5 thou/uL (0.11-0.59); #Neutrophils 11.4 thou/uL (1.40-6.50); %Eosinophils 0.2 % (0.0-10.0); %Lymphocytes 5.9 % (21.0-51.0); %Monocytes 3.6 % (0.0-10.0); %Neutrophils 90.3 % (42.0-75.0); Hemoglobin 10.1 g/dL (12.0-16.0); Mean Corpuscular HGB CONC 34.2 g/dL (32.0-36.0); Mean Corpuscular Hemoglobin 29.4 pg (27.0-31.0); Mean Platelet Volume 6.8 fL (7.4-10.4); Platelet Count 256 thou/uL (130-400); RBC Distribution Width 14.8 % (11.5-14.5); Red Blood Cell (RBC) Count 3.45 mill/uL (4.20-5.40); White Blood Cell (WBC) Count 12.6 thou/uL (4.8-10.8)
[2018-11-30 05:57] LABS: ALT (SGPT) Less than 7 U/L (8-55); AST (SGOT) 14 U/L (5-34); Albumin 3.7 g/dL (3.4-4.8); Alkaline Phosphatase 77 U/L (40-150); Anion Gap 16 mmol/L (10-20); BUN (Urea Nitrogen) 26 mg/dL (9.8-20.1); Bilirubin, Total 0.2 mg/dL (0.2-1.2); Calc. Creatinine Clearance 74 mL/min (70-130); Calcium 10.7 mg/dL (7.8-10.44); Carbon Dioxide 23 mmol/L (23-31); Chloride 101 mmol/L (98-107); Estimated GFR-MDRD 69; Globulin 2.3 g/dL (2.4-3.5); Glucose 151 mg/dL (80-115); Potassium 4.4 mmol/L (3.5-5.1); Sodium 136 mmol/L (136-145)
[2018-11-30] MEDS: Levothyroxine Sodium 50 MCG TAB PO SCH (06:09)
[2018-11-30] MEDS: traMADol HCl 50 MG TAB PO SCH ×2 (09:28→19:50)
[2018-11-30] MEDS: Polyethylene Glycol 3350 17 GM Packet PO SCH (09:30)
[2018-11-30] MEDS: ALPRAZolam 0.5 MG TAB PO PRN ×2 (09:40→22:55)
--- NOTE | 2018-11-30 17:13 | PDOC.HOSPP ---
- Subjective Subjective: Still confused. Her reports that last night she started making phone calls to various places regarding his rehab and was "upset". She insist today that he has been accepted and everything is worked out. Not the case. She says she has some pain in the butt and neck at times. Otherwise no major complaints. - Objective Vital Signs & Weight: Vital Signs (12 hours) Temp Pulse Resp BP BP Pulse Ox 11/30/18 15:00 98.7 F 62 20 115/61 96 11/30/18 08:35 98.8 F 67 20 143/63 H 92 L Weight Admit Weight 152 lb Weight 147 lb 9.6 oz I&O: 11/29/18 11/30/18 12/01/18 06:59 06:59 06:59 Intake Total 1644 714 Output Total 450 Balance 1644 264 Result Diagrams: 11/30/18 04:41 11/30/18 04:41 Additional Labs: Accuchecks 11/29/18 16:52 POC Glucose 158 H ROS - Medication Medications: Active Medications Generic Name Dose Route Start Last Admin Trade Name Lelandq PRN Reason Stop Dose Admin Alprazolam 0.5 mg 11/25/18 18:00 11/30/18 09:40 Xanax PO 0.5 mg BID PRN Administration Anxiety Hydrocortisone Sodium Succinate 100 mg 11/27/18 21:00 11/30/18 15:01 Solu-Cortef IVP 100 mg 0300,0900,1500,2100 TISH Administration Levothyroxine Sodium 50 mcg 11/26/18 06:00 11/30/18 06:09 Synthroid PO 50 mcg 0600 TISH Administration Mirtazapine 15 mg 11/25/18 21:00 11/29/18 20:59 Remeron PO 15 mg HS TISH Administration Polyethylene Glycol 17 gm 11/28/18 09:00 11/30/18 09:30 Miralax PO 17 gm DAILY TISH Administration Tramadol HCl 50 mg 11/25/18 21:00 11/30/18 09:28 Ultram PO 50 mg BID TISH Administration - Exam NAD, awake alert Heart: RRR, no murmur, no gallops, no rubs, normal peripheral pulses Respiratory: CTAB, no wheezes, no rales, no ronchi, normal chest expansion, no tachypnea, normal percussion Gastrointestinal: soft, non-tender, non-distended, normal bowel sounds, no palpable masses, no hepatomegaly, no splenomegaly, no bruit Skin: normal turgor Neurological: CN's grossly intact, no focal deficits Psychiatric - other findings: Slightly elevated affect. Hosp A/P (1) Acute metabolic encephalopathy Code(s): G93.41 - METABOLIC ENCEPHALOPATHY Status: Acute (2) Hypercalcemia Code(s): E83.52 - HYPERCALCEMIA Status: Acute (3) Hyponatremia Code(s): E87.1 - HYPO-OSMOLALITY AND HYPONATREMIA Status: Acute (4) Metastatic renal cell carcinoma Code(s): C64.9 - MALIGNANT NEOPLASM OF UNSP KIDNEY, EXCEPT RENAL PELVIS Status : Chronic (5) Adrenal insufficiency Code(s): E27.40 - UNSPECIFIED ADRENOCORTICAL INSUFFICIENCY Status: Acute - Plan Na is back to normal with treatment. Calcium is better with treatment. Encephalopathy persists. May need imaging of the brain to rule out mets. Bone scan pending for the hypercalcemia. Continues to eat better than prior to admission. Continue hydrocortisone. Can change to po.
[2018-11-30] MEDS: Mirtazapine 15 MG TAB PO SCH (19:51)
[2018-11-30] MEDS: Hydrocortisone 10 mg Tablet PO SCH (19:51)
[2018-12-01 05:13] LABS: #Monocytes 0.7 thou/uL (0.11-0.59); #Neutrophils 8.1 thou/uL (1.40-6.50); %Eosinophils 0.4 % (0.0-10.0); %Lymphocytes 10.1 % (21.0-51.0); %Monocytes 7.6 % (0.0-10.0); %Neutrophils 81.9 % (42.0-75.0); Hemoglobin 9.7 g/dL (12.0-16.0); Mean Corpuscular HGB CONC 34.8 g/dL (32.0-36.0); Mean Corpuscular Volume 86.4 fL (78.0-98.0); Mean Platelet Volume 6.5 fL (7.4-10.4); Platelet Count 262 thou/uL (130-400); RBC Distribution Width 14.6 % (11.5-14.5); Red Blood Cell (RBC) Count 3.23 mill/uL (4.20-5.40); White Blood Cell (WBC) Count 9.9 thou/uL (4.8-10.8)
[2018-12-01 05:37] LABS: ALT (SGPT) 17 U/L (8-55); AST (SGOT) 29 U/L (5-34); Albumin 3.6 g/dL (3.4-4.8); Alkaline Phosphatase 60 U/L (40-150); Anion Gap 14 mmol/L (10-20); BUN (Urea Nitrogen) 23 mg/dL (9.8-20.1); Bilirubin, Total 0.2 mg/dL (0.2-1.2); Calc. Creatinine Clearance 81 mL/min (70-130); Calcium 9.9 mg/dL (7.8-10.44); Carbon Dioxide 27 mmol/L (23-31); Chloride 99 mmol/L (98-107); Estimated GFR-MDRD 76; Glucose 111 mg/dL (80-115); Potassium 3.8 mmol/L (3.5-5.1); Protein, Total 5.6 g/dL (6.0-8.3); Sodium 136 mmol/L (136-145)
[2018-12-01] MEDS: Levothyroxine Sodium 50 MCG TAB PO SCH (06:00)
[2018-12-01] MEDS: Hydrocortisone 10 mg Tablet PO SCH ×4 (09:24→21:28)
[2018-12-01] MEDS: traMADol HCl 50 MG TAB PO SCH ×2 (09:25→21:27)
[2018-12-01] MEDS: Polyethylene Glycol 3350 17 GM Packet PO SCH (09:26)
[2018-12-01] MEDS: ALPRAZolam 0.5 MG TAB PO PRN ×2 (10:33→21:35)
[2018-12-01] MEDS ORDERED: Iopamidol 370 76% 100 ML VIAL ONE (10:33)
--- NOTE | 2018-12-01 13:38 | CT ---
Head CT with and without contrast: 12/01/2018 COMPARISON: None HISTORY: Renal cell carcinoma, history of metastatic disease TECHNIQUE: Axial CT imaging from vertex through skull base with and without IV contrast. FINDINGS: There is edema in the region of the posterior body and splenium of the corpus callosum exte nding laterally adjacent to the body of the bilateral lateral ventricles posteriorly. The postcontrast imaging demonstrates an enhancing mass lesion measuring 2.1 cm in transverse dimension i n the region of the posterior body/splenium of the corpus callosum. The imaged paranasal sinuses and mastoid air cells are well aerated. No displaced calvarial fracture. The enhancing mass lesion mentioned above demonstrates mild internal hyperdensity on the precontrast imaging which could signify a degree of internal hemorrhage. IMPRESSION: Enhancing mass lesion centered within the posterior aspect of the corpus callosum with ad jacent edema bilaterally. The location of this abnormality is suspicious for primary brain neoplasm but a metastatic lesion is a possibility given the patient's history. Pau, the covering nurse for this patient, was made aware at 1:30 PM 12/01/2018. Recommend brain MRI if the patient is able for full evaluation.
--- NOTE | 2018-12-01 14:06 | NM ---
NM Bone Scan STANDARD: 12/01/2018 7:00 AM CLINICAL INDICATION: Left renal malignancy. COMPARISON: 07/21/2018 RADIOPHARMACEUTICAL: 33 mCi Tc 99M MDP FINDINGS: Bone lesions: There are no osseous lesions suspicious for metastatic disease. Other findings: Degenerative activity is present at the axial and appendicular skeleton. IMPRESSION: No scintigraphic evidence of osseous metastatic disease.
[2018-12-01 14:08] VITALS: BMI 23.5
--- NOTE | 2018-12-01 15:12 | PDOC.MOPN ---
Interval History: Ambulatory in hallway. Denies headache, blurred vision. - Vital Signs Vital Signs: Vital Signs (12 hours) Temp Pulse Resp BP BP Pulse Ox 12/01/18 12:39 98.1 F 74 20 125/74 95 12/01/18 07:31 97.9 F 75 20 122/57 L 96 12/01/18 04:00 97.9 F 65 18 113/56 L 93 L Weight Admit Weight 152 lb Weight 150 lb - Physical Exam General: Alert HEENT: Atraumatic Lungs: Clear to auscultation Cardiovascular: Regular rate Abdomen: Normal bowel sounds Neurological: Normal speech - Labs Result Diagrams: 12/01/18 04:37 12/01/18 04:37 Lab results: Laboratory Results - last 24 hr 12/01/18 04:37: WBC 9.9, RBC 3.23 L, Hgb 9.7 L, Hct 27.9 L, MCV 86.4, MCH 30.0, MCHC 34.8, RDW 14.6 H, Plt Count 262, MPV 6.5 L, Neutrophils % 81.9 H, Lymphocytes % 10.1 L, Monocytes % 7.6, Eosinophils % 0.4, Basophils % 0.0, Neutrophils # 8.1 H, Lymphocytes # 1.0 L, Monocytes # 0.7 H, Eosinophils # 0.0, Basophils # 0.0 12/01/18 04:37: Sodium 136, Potassium 3.8, Chloride 99, Carbon Dioxide 27, Anion Gap 14, BUN 23 H, Creatinine 0.77, Estimated GFR (MDRD) 76, Glucose 111, Calcium 9.9, Total Bilirubin 0.2, AST 29, ALT 17, Alkaline Phosphatase 60, Serum Total Protein 5.6 L, Albumin 3.6, Globulin 2.0 L, Albumin/Globulin Ratio 1.8 11/29/18 09:44: 1,25 Dihydroxy Vit D 39.0 Status: lab reviewed by me A/P - Problem (1) Metastatic renal cell carcinoma Current Visit: Yes Code(s): C64.9 - MALIGNANT NEOPLASM OF UNSP KIDNEY, EXCEPT RENAL PELVIS Status: Chronic (2) Hyponatremia Current Visit: Yes Code(s): E87.1 - HYPO-OSMOLALITY AND HYPONATREMIA Status : Resolved (3) Brain lesion Current Visit: Yes Code(s): G93.9 - DISORDER OF BRAIN, UNSPECIFIED Status: Acute (4) Hypercalcemia Current Visit: Yes Code(s): E83.52 - HYPERCALCEMIA Status: Resolved - Plan Plan: Brain lesion noted on CT. Neurosurgical consult placed. Consider Radiation Oncology consult for SRS if no surgical intervention Steroids, add dex for cerebral edema discussed with Dr. Garrett Continue monitoring of chemistries
[2018-12-01] MEDS: Mirtazapine 15 MG TAB PO SCH (21:28)
[2018-12-01] MEDS: Dexamethasone 4 MG TAB PO SCH (21:34)
[2018-12-02] MEDS: Levothyroxine Sodium 50 MCG TAB PO SCH (06:38)
[2018-12-02] MEDS: Hydrocortisone 10 mg Tablet PO SCH ×5 (08:46→22:02)
[2018-12-02] MEDS: Dexamethasone 4 MG TAB PO SCH ×5 (08:46→22:04)
[2018-12-02] MEDS: traMADol HCl 50 MG TAB PO SCH ×2 (08:47→22:03)
[2018-12-02] MEDS: Polyethylene Glycol 3350 17 GM Packet PO SCH (08:47)
[2018-12-02] MEDS: ALPRAZolam 0.5 MG TAB PO PRN ×2 (08:48→22:03)
--- NOTE | 2018-12-02 10:08 | CON ---
DATE OF CONSULTATION: Ms. Gonzalez is a 63-year-old woman, who was in the hospital for altered mental status, thought to be secondary to metabolic encephalopathy and did have electrolyte derangements that have been corrected, and she still has ongoing confusion and at times is easily agitated. Neurosurgery was consulted for CT scan of the head that was performed yesterday with contrast reveals a contrast-enhancing mass of the splenium of the corpus callosum that measures high up roughly 1.5 cm in transverse dimension. She does have known renal cell carcinoma, and while this could represent a metastatic lesion and it is in a somewhat obscured place and appears somewhat atypical for this. Other things considered would be primary brain lesions such as lymphoma or glioblastoma, but given that this is a CAT scan we really need an MRI image to better evaluate the characteristics of this mass. I discussed with the patient and family at bedside that this is an identified mass. There is edema in the left parieto-occipital region that could be related to this or potentially could represent separate metastatic lesion, but because again at a CT imaging, we were unable to really tell. Family is concerned that her mental status is related to this and it certainly could be, but until we have better imaging, it is hard to say and is also more difficult to say about the route of treatment, so I highly doubt given the location, this would be a surgical case, and this was explained to the patient and family. The patient specifically is very frustrated with me when I recommend being in the hospital another day. She has already been here one week, and requested I do not patronize her when trying to explain the necessity of it. This certainly is related to her altered mental status, I would imagine as well. Family is on board for patient staying in the hospital, and I would like to request an MRI with and without contrast of the brain to be done today for evaluation, and she will most certainly need Radiation Oncology consultation given that this will be the most likely route of treatment regardless of what we find on MRI imaging. We will follow up thereafter. Job ID: [id number]
[2018-12-02] MEDS ORDERED: Gadobenate Dimeglumine 529 MG/1 ML (20ML VIAL) ONE (11:04)
--- NOTE | 2018-12-02 15:29 | MRI ---
MRI Brain W WO Con History: Mass. Comparison: CT brain prior day Findings: Multiplanar multisequence MRI of the brain performed prior to and after the intravenous min istration of contrast. There is a mass in the splenium corpus callosum with marked enhancement measuring 2.2 x 1.8 x 1.5 cm. No involvement of the pineal gland. Sparing of the internal cerebral ve ins. Mass is very well defined, round with a small focus of internal diffusion restriction. There is some hemosiderin staining. There is also a punctate focus of hemosiderin staining in the left occipital white matter axial image series may be sequelae of an old infarct. Mass does have mild intrinsic T1 h yperintensity. Extensive adjacent vasogenic edema. There is moderate periventricular and deep white matter chronic microvascular ischemic changes. No ot her enhancing mass is appreciated. The globes are intact. Paranasal sinuses and mastoids are relatively clear. 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 This is the only enhancing mass. Differential includes primary malignancy such as glioblastoma and less likely a metastatic focus or other entities such as lymphoma.
[2018-12-02] MEDS: Mirtazapine 15 MG TAB PO SCH (22:03)
[2018-12-02] MEDS: Famotidine 20 MG TAB PO SCH (22:04)
--- NOTE | 2018-12-02 23:48 | CON ---
DATE OF CONSULTATION: 12/02/2018 REASON FOR CONSULTATION: Ms. Gonzalez is a 63-year-old female with a long history of metastatic renal cell carcinoma. I was asked to see her for possible brain metastasis. HISTORY OF PRESENT ILLNESS: Ms. Gonzalez was initially diagnosed with a left renal cell carcinoma 12 years ago and underwent nephrectomy at that time. About a year and a half ago, she was suspected to have recurrent disease in multiple areas. She underwent fine-needle aspiration of a right neck lymph node, which returned the diagnosis of malignant cells consistent with metastatic renal cell carcinoma. Apparently, she has been on immunotherapy. More recently, she has had problems with confusion. She has had difficulties with a very low sodium. 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 Apparently, she had a sodium of 115 and was admitted to the hospital for treatment of that. For the past 3 or 4 days, her sodium has been much improved and her thinking has been improved, although has not completely returned to normal. This led to a CT scan of the head yesterday which showed a 2.1 cm mass in the splenium of the corpus callosum that was concerning for either a primary brain tumor or metastatic disease. I have been asked to see her for consideration of radiation therapy. She does have an MRI of the brain. Presently, she denies any headaches. She does seem to recall her situation, although she is clearly having difficulty with her speech and confusion. She denies any pain at the present time. Her granddaughter states that she has been clear in the last 3-4 days with her thinking and has been beginning to eat better. She has no shortness of breath or chest pain. She voices no other complaints. PAST MEDICAL HISTORY: 1. Metastatic renal cell carcinoma as mentioned above. 2. Hypertension. 3. Hypercholesterolemia. 4. Status post . 5. Status post left nephrectomy for renal cell carcinoma. MEDICATIONS: 1. Decadron. 2. Hydrocortisone. 3. Synthroid. 4. Remeron. 5. Zofran p.r.n. 6. Tramadol. 7. MiraLAX. ALLERGIES: NO KNOWN MEDICAL ALLERGIES. SOCIAL HISTORY: The patient lives with her in [place], [place]. Apparently, her has experienced a stroke and is also in the hospital at this time. She has no alcohol use at the present time. She previously smoked one pack per day , but has not smoked for the past 30 days. She was working as a nurse at the time of admission. FAMILY HISTORY: Negative for renal cell carcinoma. Her mother at age 80 from COPD. Her father in his 80s, but she does not know the cause. REVIEW OF SYSTEMS: A 12-point review of systems is otherwise negative. PHYSICAL EXAMINATION: VITAL SIGNS: Height is 5 feet 7 inches, weight is 147 pounds, blood pressure 129/66, pulse is 61, respirations are 17, temperature is 98.2, O2 saturation is 97%. CONSTITUTIONAL: She is awake and alert. She is oriented to the year and the president, but has some difficulty recalling previous presidents. She also has some difficulty recalling that she is in the hospital. However, she seems to understand that she has a brain tumor and can recall many details about her renal cell carcinoma. EYES: Pupils equal, round, and reactive to light. Extraocular movements are intact. ENT: Oral cavity and oropharynx are normal without lesion or erythema. Palate elevates symmetrically. Gingiva is intact. NECK: Supple without preauricular, submandibular, cervical, or supraclavicular adenopathy. No thyromegaly. LUNGS: Breathing nonlabored. Clear to auscultation and percussion. CARDIOVASCULAR/HEART: Regular rate and rhythm without murmur. No lower extremity edema. BACK: No tenderness on fist percussion of her spine. LYMPHATIC: No axillary or inguinal adenopathy. ABDOMEN: Soft, nontender, nondistended without mass or hepatosplenomegaly. Liver percusses to normal size. SKIN: Without rash or purpura. NEUROLOGIC: Cranial nerves 2 through 12 grossly intact. Motor strength is 5/5 in both upper and lower extremities and all muscle groups tested. Reflexes are normal and symmetrical. Gait was not tested. RADIOLOGIC DATA: CT scan of the head and bone scan from this admission were personally reviewed. CT scan of the head showed a 2.1 cm enhancing mass in the splenium of the corpus callosum. Bone scan was negative for metastatic disease. CT scan of the chest, abdomen, and pelvis from October of 2018 was personally reviewed. Again, she has malignant adenopathy in the mediastinum as well as multiple lung masses. She has a mass in the tail of the pancreas region. She has a mass in the right adrenal gland and adjacent to the kidney, all consistent with metastatic disease. MRI of the brain was not available when I visited with the patient, but subsequently become available at the time of this dictation and that was personally reviewed. This shows only a single enhancing mass in the brain measuring 2.2 cm in the splenium of the corpus callosum. There was some surrounding vasogenic edema. LABORATORY DATA: Sodium on admission was 123. Sodium yesterday was 136. Albumin was 3.6. Electrolytes otherwise normal. CBC yesterday revealed a white blood cell count of 9900 with a hemoglobin of 9.7, hematocrit 27.9, and platelet count of 262,000. Fine-needle aspirate from 07/07/2018 showed malignant cells consistent with metastatic clear cell renal cell carcinoma. ASSESSMENT: Ms. Gonzalez is a 63-year-old female with recurrent and metastatic stage IV renal cell carcinoma, who now likely has a brain metastasis. Although this could be a primary brain tumor, I think given her other extensive metastatic disease that it is much more likely that this represents a solitary brain metastasis. PLAN: I did have discussion today with Ms. Gonzalez and her granddaughter regarding her diagnosis, prognosis, prognostic factors, and treatment options. At the time of my visiting with them, the MRI results were not yet available. These have now subsequently become available and have been reviewed. I had discussed with them the possiblility of both stereotactic radiosurgery versus possible whole brain radiation if she where to have multiple metastasis. Given that she has a solitary lesion, I think she is best going to be managed with a course of fractionated radiosurgery. The logistics of this option, as well as the benefits and risk of radiation were discussed. The simulation and treatment procedure were discussed. Side effects would include but not be limited to skin reaction, fatigue, hair loss, lower blood counts, headache, nausea, vomiting, and small risk of damage to her normal brain. Time was taken to answer all other questions regarding her treatment options. She does wish to pursue treatment at this time. I am going to return tomorrow and discuss this with her again and we will also discuss this with other family members, who are available before we make a final decision on how best to proceed. If she continues to desire to pursue radiation therapy, then we will make arrangements for her to undergo simulation. Thank you for this interesting consultation. Job ID: [id number] [facility]. NOBLE HOSPITALArnaldo
[2018-12-03] MEDS: Levothyroxine Sodium 50 MCG TAB PO SCH (05:18)
[2018-12-03 05:23] LABS: #Lymphocytes 1.2 thou/uL (1.20-3.40); #Monocytes 0.7 thou/uL (0.11-0.59); #Neutrophils 4.8 thou/uL (1.40-6.50); %Basophils 0.1 % (0.0-1.0); %Eosinophils 0.6 % (0.0-10.0); %Lymphocytes 18.1 % (21.0-51.0); %Neutrophils 71.1 % (42.0-75.0); Hemoglobin 9.9 g/dL (12.0-16.0); Mean Corpuscular HGB CONC 34.5 g/dL (32.0-36.0); Mean Corpuscular Hemoglobin 29.5 pg (27.0-31.0); Mean Corpuscular Volume 85.7 fL (78.0-98.0); Mean Platelet Volume 6.4 fL (7.4-10.4); Platelet Count 266 thou/uL (130-400); RBC Distribution Width 14.8 % (11.5-14.5); Red Blood Cell (RBC) Count 3.33 mill/uL (4.20-5.40); White Blood Cell (WBC) Count 6.7 thou/uL (4.8-10.8)
[2018-12-03 05:53] LABS: ALT (SGPT) 60 U/L (8-55); AST (SGOT) 36 U/L (5-34); Albumin 3.5 g/dL (3.4-4.8); Alkaline Phosphatase 61 U/L (40-150); Anion Gap 11 mmol/L (10-20); BUN (Urea Nitrogen) 24 mg/dL (9.8-20.1); Bilirubin, Total 0.3 mg/dL (0.2-1.2); Calc. Creatinine Clearance 76 mL/min (70-130); Calcium 8.7 mg/dL (7.8-10.44); Carbon Dioxide 28 mmol/L (23-31); Chloride 98 mmol/L (98-107); Estimated GFR-MDRD 71; Globulin 1.9 g/dL (2.4-3.5); Glucose 103 mg/dL (80-115); Potassium 3.5 mmol/L (3.5-5.1); Protein, Total 5.4 g/dL (6.0-8.3); Sodium 133 mmol/L (136-145)
[2018-12-03 06:05] LABS: Free T4 (Free Thyroxine) 0.61 ng/dL (0.70-1.48); Thyroid Stimulating Hormone 28.1013 uIU/mL (0.35-4.94)
[2018-12-03] MEDS: ALPRAZolam 0.5 MG TAB PO PRN (09:21)
[2018-12-03] MEDS: Dexamethasone 4 MG TAB PO SCH ×2 (09:21→12:10)
[2018-12-03] MEDS: Famotidine 20 MG TAB PO SCH (09:21)
[2018-12-03] MEDS: Hydrocortisone 10 mg Tablet PO SCH (09:22)
[2018-12-03] MEDS: Polyethylene Glycol 3350 17 GM Packet PO SCH (09:24)
[2018-12-03] MEDS: traMADol HCl 50 MG TAB PO SCH (09:24)
--- NOTE | 2018-12-03 10:22 | PRG ---
DATE OF SERVICE: 12/03/2018 SUBJECTIVE: Ms. Gonzalez feels that she is doing better today. She thinks her mentation is a little better. She is still having some trouble with her speech, but seems to understand the person, place and situation and the things that we talked about. She has no other specific complaints. OBJECTIVE: VITAL SIGNS: Height 5 feet 7 inches, weight 147 pounds, blood pressure 151/73, pulse is 74, respirations 16, temperature is 98.4, O2 saturation 97%. CONSTITUTIONAL: She is alert and oriented. Karnofsky performance status is 70%. NEUROLOGIC: She is moving all extremities. No focal weakness. RADIOLOGIC DATA: MRI of the brain was again personally reviewed. Again, she has a contrast-enhancing lesion in the splenium of the corpus callosum measuring 2.2 cm with some surrounding vasogenic edema. ASSESSMENT: Ms. Gonzalez is a 63-year-old female with a long history of metastatic renal cell carcinoma who now likely has a solitary brain metastasis from renal cell carcinoma. The other possibility would be a primary brain tumor, but I think this is much less likely given that she has diffuse uncontrolled metastatic disease in the lungs and abdomen. Presumably some of her speech issues are still related to the lesion since her hyponatremia and hypothyroidism have been corrected. PLAN: I had a discussion again today with Ms. Gonzalez in the presence of her daughters regarding her diagnosis, prognosis, prognostic factors, and treatment options. Ms. Gonzalez has been currently not available because she is recovering from a stroke and is also a patient at [facility]. She is about to be transferred to rehab. I made the recommendation to her that we treat the brain lesion with stereotactic radiosurgery. The logistics of this option as well as the benefits and risks were discussed. The simulation and treatment procedure were discussed. Side effects would include but not be limited to skin reaction, fatigue, lower blood counts, headache, nausea, vomiting, and small risk of damage to her brain from the treatment. I did explain that the risk of necrosis is slightly higher given that she has had immunotherapy, but the odds are still fairly high in her favor that this will not recur. Also, the risk of necrosis is less with a fractionated course of radiosurgery, which is what we plan to proceed with. Time was taken to answer all of her questions and all of her daughter's questions regarding her diagnosis and treatment options. She is agreeable to proceed with radiosurgery as recommended. I will coordinate this with Neurosurgery who has felt that she was not a candidate for craniotomy. My plan is for her to have the mass made today and tomorrow for radiosurgery. Hopefully, we will be able to do her treatment next week on Saturday, Saturday, and . From my perspective, she can be discharged when she is medically stable and this can be continued as an outpatient. The patient understands that she is not to drive and this is explained to the family also and they are in agreement. Job ID: [id number]
[2018-12-03 12:09] VITALS: BP 125/69; TEMP 97.9
--- NOTE | 2018-12-03 13:46 | PDOC.MOPN ---
Interval History: Pt feeling ok today, still confused but is aware of her confusion and is frustrated by it. - Vital Signs Vital Signs: Vital Signs (12 hours) Temp Pulse Resp BP BP Pulse Ox 12/03/18 12:02 97.9 F 68 18 125/69 98 12/03/18 07:26 98.4 F 74 16 151/73 H 97 12/03/18 03:18 98.3 F 65 19 126/83 97 Weight Admit Weight 152 lb Weight 147 lb 8 oz - Physical Exam General: Alert, Cooperative HEENT: Atraumatic Lungs: Normal air movement Cardiovascular: Regular rate Abdomen: Normal bowel sounds, Soft, No tenderness Neurological: Cranial nerves 3-12 NL Psych/Mental Status: Mental status NL, Other (oriented to person and place) - Labs Result Diagrams: 12/03/18 04:39 12/03/18 04:39 Lab results: Laboratory Results - last 24 hr 12/03/18 04:39: WBC 6.7, RBC 3.33 L, Hgb 9.9 L, Hct 28.6 L, MCV 85.7, MCH 29.5, MCHC 34.5, RDW 14.8 H, Plt Count 266, MPV 6.4 L, Neutrophils % 71.1, Lymphocytes % 18.1 L, Monocytes % 10.0, Eosinophils % 0.6, Basophils % 0.1, Neutrophils # 4.8, Lymphocytes # 1.2, Monocytes # 0.7 H, Eosinophils # 0.0, Basophils # 0.0 12/03/18 04:39: Free T4 0.61 L, TSH 3rd Generation 28.1013 H 12/03/18 04:39: Cortisol 13.70 12/03/18 04:39: Sodium 133 L, Potassium 3.5, Chloride 98, Carbon Dioxide 28, Anion Gap 11, BUN 24 H, Creatinine 0.82, Estimated GFR (MDRD) 71, Glucose 103, Calcium 8.7, Total Bilirubin 0.3, AST 36 H, ALT 60 H, Alkaline Phosphatase 61, Serum Total Protein 5.4 L, Albumin 3.5, Globulin 1.9 L, Albumin/Globulin Ratio 1.8 A/P - Problem (1) Adrenal insufficiency Current Visit: Yes Code(s): E27.40 - UNSPECIFIED ADRENOCORTICAL INSUFFICIENCY Status: Acute (2) Brain lesion Current Visit: Yes Code(s): G93.9 - DISORDER OF BRAIN, UNSPECIFIED Status: Acute (3) Metastatic renal cell carcinoma Current Visit: Yes Code(s): C64.9 - MALIGNANT NEOPLASM OF UNSP KIDNEY, EXCEPT RENAL PELVIS Status: Chronic (4) Hypercalcemia Current Visit: Yes Code(s): E83.52 - HYPERCALCEMIA Status: Resolved (5) Hyponatremia Current Visit: Yes Code(s): E87.1 - HYPO-OSMOLALITY AND HYPONATREMIA Status : Resolved - Plan Plan: Hyponatremia, hypocalcemia, and adrenal insufficiency have been addressed. Her brain lesion is likely a solitary metastasis from her RCC given extensive systemic disease, and less likely a GBM. She is not a candidate for resection so will be receiving SRS by Dr. South, planning to start next week. SRS f/u with me in clinic: will need to consider continuing Opdivo vs changing therapy to Cabozantinib
--- NOTE | 2018-12-03 14:12 | PDOC.PALCO ---
Palliative Care Consult - Consult Details Requesting Physician: Dr Joe Reason for Consult: coping issues Family Members Present: Daughter, [id number], friend - Pertinent HPI Paitent with a history of left renal cell carcinoma, and recently had episodes of altered/low sodium paired with confusion. Patient was evaluated in the Emergency Room and admitted for for monitoring of fluids and sodium. After sodium was stabilized a CT of the head revealed a 2.1 cm mass. Palliative care consulted for coping support. - Pertinent PMH Metastatic renal cell carcinoma, hypertension, hypercholesterolemia, left nephrectomy for renal cell carcinoma - Social History Smoking Status: Former smoker Smoking: quit greater than 1 year Alcohol Use: none Drug Use History: none Living Situation: ( with recent CVA) - Allergies Allergies/Adverse Reactions: Allergies Allergy/AdvReac Type Severity Reaction Status Date / Time No Known Allergies Allergy Verified 07/24/18 11:38 - Subjective Patient awaiting discharge, states only frustration is "this confusion". ROS: confusion, 10 point review of all other systems is negative. - Objective Vital Signs: Vital Signs - Most Recent Temp Pulse Resp BP Pulse Ox 97.9 F 68 18 125/69 98 12/03/18 12:02 12/03/18 12:02 12/03/18 12:02 12/03/18 12:02 12/03/18 12:02 Palliative Performance Scale: 80 - Physical Exam Constitutional: confusion HEENT: moist MMs Respiratory: no wheezing Musculoskeletal: no edema Neurological: moves all 4 limbs Psychiatric: normal affect, A&O x 3 Skin: normal turgor - Problem List (1) Palliative care encounter Code(s): Z51.5 - ENCOUNTER FOR PALLIATIVE CARE Current Visit: Yes Status: Acute (2) Brain lesion Code(s): G93.9 - DISORDER OF BRAIN, UNSPECIFIED Current Visit: Yes Status: Acute (3) Metastatic renal cell carcinoma Code(s): C64.9 - MALIGNANT NEOPLASM OF UNSP KIDNEY, EXCEPT RENAL PELVIS Current Visit: Yes Status: Chronic - Plan/Recommendations Plan: Established contact and provided information in relation to contacting Palliative Care if admitted in the future for support or assistance. [30] minutes spent on this encounter with >50% of the time in counseling and coordination of care. Thank you for this very appropriate consult.
== END 2018-12-03 14:30 | disposition home or self-care (01) | DRG 643 ==
LOC: ERS 21:16 → 2NO 23:21
PROVIDERS: ADMIT Internal Medicine; ATTEND Internal Medicine
DX: E22.2 Syndrome of inappropriate secretion of antidiuretic hormone (principal); G93.41 Metabolic encephalopathy; G93.6 Cerebral edema; C64.9 Malignant neoplasm of unspecified kidney, except renal pelvis; N17.9 Acute kidney failure, unspecified; C79.70 Secondary malignant neoplasm of unspecified adrenal gland; C79.31 Secondary malignant neoplasm of brain; Z51.5 Encounter for palliative care; I10 Essential (primary) hypertension; E78.5 Hyperlipidemia, unspecified; F17.210 Nicotine dependence, cigarettes, uncomplicated; E03.9 Hypothyroidism, unspecified; I12.9 Hypertensive chronic kidney disease with stage 1 through stage 4 chronic kidney disease, or unspecified chronic kidney disease; N18.2 Chronic kidney disease, stage 2 (mild); D64.9 Anemia, unspecified; E83.52 Hypercalcemia; Z90.5 Acquired absence of kidney; Z79.899 Other long term (current) drug therapy; Z98.890 Other specified postprocedural states; Z88.8 Allergy status to other drugs, medicaments and biological substances
CPT/HCPCS: 36415; 36416; 70470; 70553; 78306; 80048; 80053; 82088; 82248; 82306; 82533; 82652; 83615; 83735; 83930; 83935; 83970; 84100; 84295; 84300; 84439; 84443; 84550; 85025; 99284; A9503; A9577; J1720; J1940; J3489; J3490; J8540; Q9967

== ENCOUNTER 2019-02-17 17:22 | Inpatient (IN) | payer BC ==
--- NOTE | 2019-02-17 17:55 | RAD ---
EXAM: Single view of the chest HISTORY: Stage IV renal cancer with altered mental status COMPARISON: 07/25/2018 FINDINGS: Single view of the chest shows a normal sized cardiomediastinal silhouette. The Mediport i s unchanged in position. Stable increased interstitial markings are seen in the lung bases. There is no evidence of consolidation, mass, or pleural effusion. The bones are unremarkable. IMPRESSION: No evidence of acute cardiopulmonary disease
[2019-02-17 18:01] LABS: Hemoglobin 12.7 g/dL (12.0-16.0); Mean Corpuscular HGB CONC 35.9 g/dL (32.0-36.0); Mean Corpuscular Hemoglobin 30.6 pg (27.0-31.0); Mean Corpuscular Volume 85.5 fL (78.0-98.0); Mean Platelet Volume 6.1 fL (7.4-10.4); Platelet Count 324 thou/uL (130-400); RBC Distribution Width 12.9 % (11.5-14.5); Red Blood Cell (RBC) Count 4.15 mill/uL (4.20-5.40); White Blood Cell (WBC) Count 4.8 thou/uL (4.8-10.8)
[2019-02-17 18:23] LABS: Band 4 % (5-11); Eosinophils 8 % (0-10); Lymphocytes 29 % (21-51); MDiff Complete? YES; Monocytes 13 % (0-10); Neutrophil 44 % (42-75); Platelet Morphology Comment Appears Adequate; RBC Morphology Normal; Reactive Lymphocytes 1 % (0-10)
[2019-02-17 18:27] LABS: Bilirubin Negative (Negative); Blood, Urine Negative (Negative); Clarity Clear (Clear); Glucose, Urine (Dipstick) Normal (Negative); Leukocyte Negative Leu/uL (Negative); Nitrite Negative (Negative); Protein, Urine (Dipstick) Negative (Neg-Trace); Urobilinogen Normal mg/dL (Less than 2)
[2019-02-17 18:31] LABS: ALT (SGPT) Less than 7 U/L (8-55); AST (SGOT) 16 U/L (5-34); Albumin 3.7 g/dL (3.4-4.8); Alkaline Phosphatase 65 U/L (40-110); Anion Gap 15 mmol/L (10-20); BUN (Urea Nitrogen) 8 mg/dL (9.8-20.1); Bilirubin, Total 0.9 mg/dL (0.2-1.2); Calc. Creatinine Clearance 0 mL/min (70-130); Carbon Dioxide 23 mmol/L (23-31); Chloride 88 mmol/L (98-107); Estimated GFR-MDRD Greater than 90; Globulin 2.7 g/dL (2.4-3.5); Glucose 71 mg/dL (80-115); Potassium 4.3 mmol/L (3.5-5.1); Protein, Total 6.4 g/dL (6.0-8.3); Sodium 122 mmol/L (136-145)
--- NOTE | 2019-02-17 18:42 | CT ---
EXAM: CT brain without contrast HISTORY: Stage IV renal cancer with altered mental status COMPARISON: 01/29/2009 TECHNIQUE: Multiple contiguous axial images were obtained and a CT of the brain without contrast. FINDINGS: This exam is limited secondary to motion artifact. There are scattered hypodensities in the subcortical and periventricular white matter. There is no evidence of hydrocephalus, intracranial hemorrhage, or extra-axial fluid collection. The calvarium and overlying soft tissues are unremarkable. The visualized paranasal sinuses and masto id air cells are well aerated. IMPRESSION: Scattered hypodensities in the white matter are new compared to the prior examination. Th is could be secondary to small vessel ischemic disease that has developed over the last 10 years. This is slightly more focal in the bilateral parietal lobes and underlying masses with surrounding va sogenic edema cannot be excluded. An MRI of the brain without and with contrast is recommended if the patient can tolerate contrast.
[2019-02-17 18:53] LABS: CK (CPK) 18 U/L (29-168); Lipase 23 U/L (8-78)
[2019-02-17] MEDS ORDERED: Ondansetron PF 4 MG/2 ML Vial IVP PRN (20:22)
[2019-02-17] MEDS ORDERED: Ondansetron ODT 4 MG TAB SL PRN (20:22)
[2019-02-17] MEDS: Sodium Chloride 0.9% 1,000 ML IV SCH (20:40)
[2019-02-18] MEDS: Sodium Chloride 0.9% 1,000 ML IV SCH (05:57)
[2019-02-18] MEDS ORDERED: Prevnar 13-Val Conj/PF 0.5 ML SYRINGE IM ONE (09:00)
[2019-02-18] MEDS ORDERED: ALPRAZolam 0.5 MG TAB PO SCH (09:45)
[2019-02-18] MEDS ORDERED: Ondansetron ODT 4 MG TAB PO PRN (09:45)
[2019-02-18] MEDS ORDERED: Mirtazapine 30 MG TAB PO SCH (09:45)
[2019-02-18] MEDS ORDERED: Zolpidem Tartrate 5 MG TAB PO PRN (09:46)
[2019-02-18] MEDS ORDERED: traMADol HCl 50 MG TAB PO PRN (09:46)
[2019-02-18] MEDS ORDERED: Tolvaptan 15 MG TAB PO SCH (16:30)
--- NOTE | 2019-02-18 17:12 | CON ---
DATE OF CONSULTATION: CONSULTING PHYSICIAN: Vangie Varghese MD REQUESTING PHYSICIAN: Rosales Villalobos MD REASON FOR CONSULTATION: Hyponatremia. IMPRESSION: 1. Hyponatremia. Going by the urine chemistry, this is syndrome of inappropriate antidiuretic hormone secretion. 2. Altered mental status, which may be related to the hyponatremia, but most likely, this may be related to the patient's medical condition of brain metastases. PLAN: 1. Discontinue IV fluid. 2. Given the elevated urine osmolality of 612 and urine sodium of 132, we will initiate tolvaptan on this patient and follow sodium level closely. HISTORY OF PRESENT ILLNESS: A 63-year-old female patient with renal cell carcinoma, status post unilateral nephrectomy 14 years ago with a relapse in the only remaining kidney and metastases to the brain. The patient presented here with mental status change, and according to the daughter, has not been eating well lately. The patient on presentation was noted with a low sodium with a serum sodium of 122. As a result, decision was taken to involve Renal in the management of this case. PAST MEDICAL HISTORY: As documented in the body of the history. Dyslipidemia and hypertension. FAMILY HISTORY: Not significantly related to present illness. REVIEW OF SYSTEMS: As documented in the body of the history. All the other systems were reviewed and found not to be significantly related to presenting illness. PHYSICAL EXAMINATION: GENERAL: The patient was found not to be in any obvious distress. VITAL SIGNS: Noted with the following vital signs; afebrile, temperature 98, pulse 87, respiratory rate of 18, O2 saturation of 100% with blood pressure 120/80. HEENT: Unremarkable. Moist oral mucosa. No conjunctival injection or icterus. NECK: Supple. CARDIOVASCULAR: First and second heart sounds were heard. RESPIRATORY: Clear to auscultation. DIGESTIVE: Revealed a benign abdomen with positive bowel sounds. EXTREMITIES: No peripheral edema. SKIN: No new gross rash. LYMPHATICS: No peripheral lymphadenopathy. SUMMARY: A 63-year-old female patient, who presented here with mental status change and noted to be hyponatremic. Thank you for this consultation. We will follow with you. Job ID: [id number]
--- NOTE | 2019-02-18 19:43 | HP ---
CHIEF COMPLAINT: Altered mental status. HISTORY OF PRESENT ILLNESS: Carlos is a 63-year-old female with past medical history of metastatic renal cell carcinoma with metastasis to the brain and lungs, status post radiation and on chemo, came because of change in mental status. According to family, the patient has not been eating for last 2 weeks. The patient in the last 3 to 4 days has not eaten at all, not taken any fluids either. Because of worsening of p.o. intake as well as the patient getting confused with lethargic and weak, she was sent to the hospital. In the ER, the patient was evaluated and found to have hyponatremia. PAST MEDICAL HISTORY: 1. Hypertension. 2. Hyperlipidemia. 3. Hypothyroidism. 4. Anxiety disorder. 5. Insomnia. 6. Metastatic renal carcinoma with metastasis to the brain and lungs. PAST SURGICAL HISTORY: 1. Status post . 2. Status post nephrectomy, left side, 15 years ago. CURRENT MEDICATIONS: The patient is on, 1. Trazodone 25 mg at bedtime. 2. Tramadol 50 b.i.d. p.r.n. 3. Zolpidem 10 mg at bedtime. 4. Zofran p.r.n. 5. Mirtazepine 30 mg daily. 6. Levothyroxine 75 mcg daily. 7. Xanax 0.5 b.i.d. ALLERGIES: NKDA. FAMILY HISTORY: Nothing contributory. SOCIAL HISTORY: The patient lives with family, may still continuously smokes one pack a day. REVIEW OF SYSTEMS: CARDIOVASCULAR: No chest pain. No shortness of breath. RESPIRATORY: No fever or cough. GASTROINTESTINAL: No nausea, vomiting, or abdominal symptoms. CENTRAL NERVOUS SYSTEM: No headache. PHYSICAL EXAMINATION: GENERAL: The patient is alert, awake, and oriented x2. VITAL SIGNS: Temperature 98, pulse 97, respirations 20, blood pressure 120/60. HEENT: Head is normal and atraumatic. Pupils are equal and reactive to light. Nasopharynx is pale and dry. Hard and soft palate; no lesions. SKIN: Turgor decreased. NECK: Supple. No JVD. LUNGS: Bilateral air entry with no rales. No rhonchi. HEART: S1 and S2, regular. ABDOMEN: Soft. No distention. No tenderness. Normal bowel sounds present. RECTAL: Deferred. CENTRAL NERVOUS SYSTEM: The patient is awake and alert, but not well oriented. Motor system, power 4/5 in all extremities. Deep tendon reflex 2+ bilaterally. Plantars downgoing. Sensory intact. LABORATORY DATA: CBC shows WBC 4.8, hemoglobin 12, hematocrit 35, platelets 394. Metabolic panel; sodium 122, potassium 4.2, chloride 88, CO2 of 23, BUN 8, creatinine 0.6, glucose 70. Troponin I was 0.010. TSH was 6.6, lipase 23. Urinalysis negative. Chest x-ray negative. CT scan of the brain reported as scattered hypodensities in the white matter, possibly due to small vessel ischemic disease. Also, this could be the underlying masses with surrounding vasogenic edema. EKG shows a sinus tachycardia, no acute ST-T changes seen. ASSESSMENT: 1. Acute encephalopathy. 2. Hyponatremia. 3. Metastatic renal carcinoma with metastasis to the brain and lungs. 4. Diarrhea. 5. Hypertension. 6. Anxiety disorder. 7. Hypothyroidism. PLAN: 1. Vital signs q.4 hours. 2. Activities as tolerated. 3. Allergies, NKDA. 4. Hep-Lock. 5. Diet, regular. 6. Continue home medications. 7. MRI of the brain. Job ID: [id number]
[2019-02-18] MEDS: traZODone HCl 50 MG TAB PO SCH (20:24)
[2019-02-18] MEDS: ALPRAZolam 0.5 MG TAB PO SCH (20:24)
[2019-02-19 05:39] LABS: ALT (SGPT) 8 U/L (8-55); AST (SGOT) 24 U/L (5-34); Albumin 3.4 g/dL (3.4-4.8); Alkaline Phosphatase 69 U/L (40-110); Anion Gap 18 mmol/L (10-20); BUN (Urea Nitrogen) 6 mg/dL (9.8-20.1); Bilirubin, Total 0.6 mg/dL (0.2-1.2); Calc. Creatinine Clearance 98 mL/min (70-130); Calcium 9.4 mg/dL (7.8-10.44); Carbon Dioxide 14 mmol/L (23-31); Chloride 95 mmol/L (98-107); Estimated GFR-MDRD Greater than 90; Globulin 2.6 g/dL (2.4-3.5); Glucose 71 mg/dL (80-115); Potassium 4.2 mmol/L (3.5-5.1); Sodium 123 mmol/L (136-145)
[2019-02-19 05:49] LABS: Band 4 % (5-11); Eosinophils 3 % (0-10); Hemoglobin 12.8 g/dL (12.0-16.0); Lymphocytes 30 % (21-51); MDiff Complete? YES; Mean Corpuscular HGB CONC 34.2 g/dL (32.0-36.0); Mean Corpuscular Hemoglobin 29.4 pg (27.0-31.0); Mean Corpuscular Volume 85.9 fL (78.0-98.0); Mean Platelet Volume 6.5 fL (7.4-10.4); Monocytes 9 % (0-10); Neutrophil 54 % (42-75); Platelet Count 280 thou/uL (130-400); Platelet Morphology Comment Appears Adequate; RBC Distribution Width 12.7 % (11.5-14.5); RBC Morphology Normal; Red Blood Cell (RBC) Count 4.36 mill/uL (4.20-5.40); White Blood Cell (WBC) Count 5.2 thou/uL (4.8-10.8)
[2019-02-19] MEDS: Levothyroxine Sodium 100 MCG TAB PO SCH (05:49)
[2019-02-19] MEDS: Mirtazapine 30 MG TAB PO SCH (08:06)
[2019-02-19] MEDS: Tolvaptan 15 MG TAB PO SCH (08:06)
[2019-02-19] MEDS: ALPRAZolam 0.5 MG TAB PO SCH ×2 (08:07→20:25)
--- NOTE | 2019-02-19 12:47 | MRI ---
BRAIN MRI WITH AND WITHOUT CONTRAST: HISTORY: No brain mass/metastases. COMPARISON: 12/02/2018. FINDINGS: Gradient echo sequence: Hemorrhage associated with a known mass in the splenium. Findings are unchan ged, suggesting chronic hemorrhage/hemosiderin. Calvarium: Appropriate T1 marrow signal intensity. Midline brain parenchyma: Unremarkable. Cerebrum:Redemonstration of T2 and FLAIR hyperintensities involving the posterior aspect of the coron a radiata and centrum semiovale. Additional T2 and FLAIR hyperintensities are noted and may represent chronic small vessel ischemic change. Redemonstration of a mixed signal intensity mass invo lving the splenium of the corpus callosum. Currently, this mass measures 2.4 cm mediolateral by 1.7 cm anterior posterior by 2.0 cm craniocaudal. Previously, this mass measured 2.3 cm mediolateral by 1 .5 cm anterior-posterior by 1.3 cm craniocaudal. Ventricles: No evidence of hydrocephalus. Sinuses and mastoid air cells: Adequate aeration. Diffusion: Central arterial flow is maintained. Absent restricted diffusion. Postcontrast images: Solitary nonenhancing focus in the splenium of the corpus callosum as described above. IMPRESSION: Enlarging mass centered in the splenium of the corpus callosum with evidence of central necrosis and hemosiderin deposition. Transcribed Date/Time: 02/19/2019 12:56 PM
[2019-02-19] MEDS: Acetaminophen 325 MG TAB PO PRN (13:17)
[2019-02-19 13:19] LABS: Anion Gap 17 mmol/L (10-20); BUN (Urea Nitrogen) 10 mg/dL (9.8-20.1); Calc. Creatinine Clearance 79 mL/min (70-130); Calcium 10.2 mg/dL (7.8-10.44); Carbon Dioxide 18 mmol/L (23-31); Chloride 95 mmol/L (98-107); Estimated GFR-MDRD 75; Glucose 121 mg/dL (80-115); Potassium 3.9 mmol/L (3.5-5.1); Sodium 126 mmol/L (136-145)
--- NOTE | 2019-02-19 15:23 | PQF ---
JANE MUELLER VENKAT R MD [id number] CLINICAL DOCUMENTATION IMPROVEMENT CLARIFICATION FORM: ICD-10 Updated PLEASE DO AN ADDENDUM TO THE PROGRESS NOTE WITH ANY DOCUMENTATION UPDATES OR ADDITIONS AND CARRY THROUGH TO DC SUMMARY. THANK YOU. DATE: 02/19/19 ATTN: Dr. Villalobos, Please exercise your independent, professional judgment in responding to the clarification form. Clinical indicators are provided on the bottom of this form for your review Please check appropriate box(s): [ y ] Encephalopathy: Type: [ ] Acute [ y ] Subacute [ ] Chronic Etiology: [ ] Metabolic due to hyponatrremia [ y ] Brain metastasis [ ] Metabolic due to SIADH [ ] Unspecified [ ] in the setting of underlying dementia [ ] Other (please specify) [ ] Transient Alteration of Awareness [ ] Other diagnosis [ ] Unable to determine In addition, please specify: Present on Admission (POA): [ y] Yes [ ] No [ ] Unable to determine For continuity of documentation, please document condition throughout progress notes and discharge summary. Thank You. CLINICAL INDICATORS - SIGNS / SYMPTOMS / LABS / RESULTS AND LOCATION IN EMR 02/18 Ezeanuna: "hyponaremia, SIADH, AMS related to hyponatemia, but most likely this may be related to brain mets" H&P(Griselda): "acute encephalopathy" Metabolic / electrolyte abnormality--> labs: 02/17 Na 122; 02/19 na [id number] 02/19 MRI brain: enlarging mass centered in the splenium of the corpus callosum with evidence of central necrosis and hemosiderin deposition. RISK FACTORS / RESULTS AND LOCATION IN EMR 02/18 Ezeanuna: "hyponaremia, SIADH" 02/18 Ezeanuna: "Brain mets" TREATMENTS / RESULTS AND LOCATION IN EMR 02/18 dc IVFs: NS at 100 02/17-02/18 per orders Tolvaptan 15mg po 02/18 x1; 02/19 15mg daily per orders 02/18 Renal consult 02/18 orders (This form is maintained as a part of the permanent medical record) 2014 [employer]. All Rights Reserved Rosie Bee RN, BSN, CCDS [email or web address] [phone] [email or web address]
--- NOTE | 2019-02-19 16:28 | PRG ---
DATE OF SERVICE: 02/19/2019 SUBJECTIVE: The patient was seen and examined, seems not to be eating well, noted to be hemodynamically stable. OBJECTIVE: HEENT: Unremarkable. VITAL SIGNS: T max of 101, respiratory rate of 18, O2 saturation is 95%, and blood pressure 116/78. HEENT: Unremarkable. CARDIOVASCULAR SYSTEM: First and second sounds were heard. RESPIRATORY SYSTEM: Clear to auscultation. DIGESTIVE SYSTEM: Revealed a benign. Abdomen, positive bowel sounds. EXTREMITIES: No peripheral edema. SKIN: No new gross rash. LYMPHATICS: No peripheral lymphadenopathy. LABORATORY INVESTIGATION: Showed urine osmolality of 612, urine sodium 132. IMPRESSION: 1. Hyponatremia, this is due to syndrome of inappropriate antidiuretic hormone secretion. 2. Poor appetite/anorexia. PLAN: 1. The patient needs to stay on increased meat intake. 2. We will start this patient on tolvaptan. 3. Appetite stimulant with Marinol. 4. Further management to be dependent on the clinical course. Job ID: [id number]
[2019-02-19] MEDS: Dronabinol 2.5 MG CAP PO SCH (18:20)
[2019-02-19] MEDS ORDERED: Norepinephrine 8 MG/0.9% NS 250 ML IVPB SCH (18:22)
--- NOTE | 2019-02-19 18:26 | RAD ---
EXAM: Single view of the chest HISTORY: Decreased oxygen saturation COMPARISON: 11/11/2005 FINDINGS: Single view of the chest shows a normal sized cardiomediastinal silhouette. There is no kesha dence of consolidation, mass, or pleural effusion. The bones are unremarkable. A right-sided Mediport is seen with its tip in the superior vena cava. IMPRESSION: No evidence of acute cardiopulmonary disease
[2019-02-19] MEDS ORDERED: Cefepime 1 GM in Sodium Chloride 0.9% 100 ML IVPB SCH (18:30)
[2019-02-19] MEDS ORDERED: Sodium Chloride 0.9% 250 ML IV SCH (18:30)
[2019-02-19] MEDS ORDERED: Sodium Chloride 0.9% 500 ML IV SCH (18:45)
[2019-02-19] MEDS ORDERED: Enoxaparin Sodium 40 MG/0.4 ML SYRINGE SC SCH (19:30)
[2019-02-19] MEDS: traZODone HCl 50 MG TAB PO SCH (20:25)
[2019-02-20] MEDS: Levothyroxine Sodium 100 MCG TAB PO SCH (05:44)
[2019-02-20] MEDS: Cefepime 1 GM in Sodium Chloride 0.9% 100 ML IVPB SCH ×3 (05:44→19:46)
[2019-02-20 06:46] LABS: Anion Gap 12 mmol/L (10-20); BUN (Urea Nitrogen) 15 mg/dL (9.8-20.1); Calc. Creatinine Clearance 94 mL/min (70-130); Calcium 9.8 mg/dL (7.8-10.44); Carbon Dioxide 21 mmol/L (23-31); Chloride 97 mmol/L (98-107); Estimated GFR-MDRD 86; Glucose 106 mg/dL (80-115); Potassium 3.9 mmol/L (3.5-5.1); Sodium 126 mmol/L (136-145)
[2019-02-20] MEDS: ALPRAZolam 0.5 MG TAB PO SCH ×2 (09:21→20:23)
[2019-02-20] MEDS: Dronabinol 2.5 MG CAP PO SCH ×2 (09:21→16:41)
[2019-02-20] MEDS: Enoxaparin Sodium 40 MG/0.4 ML SYRINGE SC SCH (09:59)
[2019-02-20] MEDS: Tolvaptan 15 MG TAB PO SCH (09:59)
[2019-02-20] MEDS: Mirtazapine 30 MG TAB PO SCH (09:59)
[2019-02-20] MEDS: Acetaminophen 325 MG TAB PO PRN (10:07)
[2019-02-20] MEDS ORDERED: Vancomycin HCl 1 GM in Premix Bag 1 BAG IVPB SCH (11:00)
[2019-02-20] MEDS ORDERED: Sodium Chloride 0.9% 1,000 ML IV SCH (11:45)
[2019-02-20 13:08] VITALS: BMI 23.2
--- NOTE | 2019-02-20 13:29 | CON ---
DATE OF CONSULTATION: 02/20/2019 REASON FOR CONSULTATION: Fever. HISTORY OF PRESENT ILLNESS: A 63-year-old with history of kidney cancer, metastatic, who has undergone nephrectomy about 12 years prior to this visit and developed recurrent disease in multiple areas about a year and a half before this admission. This included neck lymph node and an intracranial lesion in the splenium of the corpus callosum. She has received ipilimumab as well as nivolumab and now is on maintenance therapy with nivolumab, having received the first course. The patient has had problems with hyponatremia, managed with tolvaptan. The intracranial mass presumed to be metastatic renal cancer, although biopsy has not been carried out. The patient is admitted this time from her home in [place] because of altered mental status for about a week before admission. The symptoms had a gradual onset and seemed to be worsening overtime. Did not have a fever before admission, but has developed one since. No vomiting. No bleeding. No respiratory symptoms. No abdominal pain. No genitourinary symptoms. No seizure activity noted. MEDICAL HISTORY: Kidney cancer, treated with nephrectomy 12 years before and then relapsed about a year and a half ago with the chemotherapy, which is mostly immunotherapy noted above. Also hyperlipidemia. SOCIAL HISTORY: Current smoker, has been smoking for 30 years. No alcoholic beverage use. Lives in [place] with . FAMILY HISTORY: Coronary artery disease. ALLERGIES: NONE. CURRENT MEDICATIONS: 1. Tylenol. 2. Albumin. 3. Xanax. 4. Cefepime. 5. Marinol. 6. Lovenox. 7. Synthroid. 8. Remeron. 9. Levophed. 10. Samsca (tolvaptan). 11. Tramadol. 12. Vancomycin. PHYSICAL EXAMINATION: VITAL SIGNS: T-max 101, the most recent one was 100.1. Other vital signs noted , hypotension, blood pressure latest 85/60, but she is not tachycardic or maybe a little bit tachycardic at 104, and O2 sats 98 on room air. SKIN: Normal peripheral IV access. She has a Breen catheter in place. HEENT: No lymphadenopathy. Ocular movements conjugate. Sclerae white. No nystagmus. Pupils are equal. Oral cavity, normal. Mild to moderate tenderness in the submandibular region. Artificial dentures. NECK: Supple. No jugular vein distention. LUNGS: Symmetric. Clear breath sounds. HEENT: S1 and S2. Regular rate without murmurs. No S3 or S4. ABDOMEN: Soft, not distended or tender. No ascites. No bladder distention. EXTREMITIES: No joint inflammatory activity. Moves extremities equally. NEUROLOGIC: Cognitive function, the patient knows her name, but she was able to tell me the hospital's name, but could not tell me the date. Recognizes relatives. Quite a bit of difficulty with recollection of events preceding and following the development of symptoms recently. Speech has no evidence of delusional thinking process, but she has difficulty in finding words sometimes. LABORATORY DATA: White cell count 4.8, hemoglobin 12.7, platelets 324 with 44% neutrophils, 4% bands. Sodium 123 and now 126, creatinine 0.69. Liver profile normal. Albumin 3.4. Urinalysis normal. IMAGING STUDIES: MRI showed a mass in the splenium of corpus callosum with not much mass effect, but significant edema noted. Chest x-ray with no evidence of infiltrates. ASSESSMENT: Metastatic renal cell cancer to the lymph node, brain, on maintenance checkpoint inhibitor immunotherapy; admitted with altered mental status, which is [id number], associated with fever. DISCUSSION: Differential diagnosis includes not yet identified bacteremia or another infectious process versus immunotherapy/checkpoint inhibitor therapy associated fever. Those agents are notorious for causing inflammatory processes associated with immune disinhibition. Those can vary anywhere from colitis to pneumonitis, etc. Fever is one of the guidepost for gauging the response to therapy sometimes. So, this may represent immune checkpoint inhibitor associated inflammatory phenomenon. Continue antimicrobial therapy. If the cultures are negative, I will discontinue the broad-spectrum coverage and consider corticosteroid. Job ID: [id number] [facility]
--- NOTE | 2019-02-20 13:54 | CON ---
DATE OF CONSULTATION: 02/20/2019 SERVICE: Pulmonary Medicine. REASON FOR CONSULTATION: ICU patient. HISTORY OF PRESENT ILLNESS: The patient is a 63-year-old white female with past medical history significant for renal cell carcinoma that is widely metastatic. She has had whole-brain radiation. Despite this, the lesion in her brain continues to grow. She has also been on immune therapy. Either way, she has had very poor p.o. intake. Ultimately, she was brought to the emergency department for progressive weakness and altered mentation. She was found to be hyponatremic. Originally, she was placed on the floor, but ultimately decompensated, required placement in the ICU. PAST MEDICAL HISTORY: 1. Hypertension. 2. Dyslipidemia. 3. Hypothyroidism. 4. Anxiety disorder. 5. Insomnia. 6. Renal cell carcinoma, widely metastatic. PAST SURGICAL HISTORY: 1. section. 2. Status post nephrectomy. ALLERGIES: NO KNOWN DRUG ALLERGIES. MEDICATIONS: List of her inpatient medications was reviewed. No specific updates were made at this time. FAMILY HISTORY: Noncontributory. SOCIAL HISTORY: Negative for alcohol or illicit drug use. She continues to smoke a little bit up until recently. She has no exposure to chemicals, dust, asbestos , or tuberculosis otherwise. REVIEW OF SYSTEMS: General; head, ears, eyes, nose, throat; cardiovascular; respiratory; GI; ; musculoskeletal; neurologic; and skin are negative except as mentioned in the HPI. PHYSICAL EXAMINATION: VITAL SIGNS: Afebrile currently with a T-max of 101.0. Pulse 100, blood pressure 113/63, respirations 23, and saturation 96% on room air. GENERAL: The patient is awake and alert, in no apparent distress. LUNGS: Decent air entry. There is no prolonged expiratory phase or wheezing appreciated. HEART: Normal rate and regular. ABDOMEN: Soft, nontender, and nondistended. Bowel sounds are positive. MUSCULOSKELETAL: No cyanosis or clubbing. No pitting in the bilateral lower extremities. She has skin tenting throughout. NEUROLOGIC: Grossly nonfocal. LABORATORY DATA: WBC 5.2, hemoglobin 12.8, platelets 280,000. Neutrophil count is 54% on top of 4% bands only. Otherwise, the differential is essentially unremarkable. Basic metabolic profile is essentially unremarkable except for a sodium of 126, chloride of 97. Both of these have improved slightly since presentation. Cortisol is less than 1. Liver function studies are unremarkable. BNP is below 10, ammonia 20. Lactate 1.3, CK 18, and troponin is unremarkable. Urinalysis is negative. Blood cultures x2, Campylobacter, stool cultures, C diff, influenza A and B, are all negative to date. IMAGIN. MRI of the brain demonstrates interval enlargement of the intracranial lesion. It is not clear whether this represents a pseudoprogression from recent radiation, whether or not there is true progression here. 2. Chest x-ray demonstrates no acute cardiopulmonary abnormality. There is bilateral metastatic disease present. The port catheter is in good position. No obvious effusions are noted. ASSESSMENT: 1. Hyponatremia. 2. Adrenal insufficiency (may be a function of the cancer, versus vasogenic edema versus rapid withdraw from chronic steroids). 3. Systemic inflammatory response syndrome without clear evidence of infection. 4. Renal cell carcinoma, widely metastatic. DISCUSSION AND PLAN: I am going to reintroduce the steroids as the patient is deficient there. We will go ahead and give her 2 L of normal saline as she is profoundly dehydrated. I will check a TSH with tomorrow morning laboratories to make certain that her other pituitary access has not taken a significant hit. Pulmonary/Critical Care will continue to follow closely. 70 minutes have been devoted to this patient in various activities. I personally reviewed all imaging studies and laboratory data noted within this document. For fifty percent of this time, I was interacting with the patient at the bedside or coordinating care with the care team. For the remainder of the time I was immediately available to the patient in the hospital unit. Job ID: [id number] MTDD
[2019-02-20] MEDS ORDERED: Dexamethasone 4 MG in Sodium Chloride 0.9% 50 ML IVPB SCH (14:00)
[2019-02-20] MEDS: Dexamethasone 4 mg/ml Vial SLOW IVP SCH ×2 (14:39→19:45)
--- NOTE | 2019-02-20 15:36 | CT ---
CT Chest Abd Pelvis W Con HISTORY: Renal cell carcinoma. Patient with history of radiation treatment and immunotherapy. Evaluat ion for progression. COMPARISON: 10/27/2018 study. FINDINGS: Severe emphysematous lung changes are present. There is a stable number of pulmonary nodule s. The nodules all appear relatively stable in size with the exception of the 2 right infrahilar nodes which show a subtle increase in size. One nodule was 2.2 cm on the prior examination now measur ing 2.5 cm the second nodule measured 2.9 cm in maximum dimension now measuring 3.1 cm The necrotic lymph node located along the posterior margin of the left main pulmonary artery is sligh tly smaller as compared the prior exam. It measured 2.4 x 4.3 cm on the prior examination as compared to 2.2 x 3.8 cm on the current study. The right suprahilar mass which appears to represent a n azygos node is stable in size at approximately 3.[address] of abdomen performed with contrast: The liver and spleen are within normal limits of size. Small hypodensity within the left lobe is stab le and appears to represent a cyst. The mass adjacent to the pancreatic tail is again noted similar in size measuring 3.2 cm. Gallbladder is contracted. The necrotic right adrenal mass is stable at approximately 4.7 cm. The 2 necrotic appearing right toribio al masses are again demonstrated. The more superior one of these measures 5 x 4.4 cm as compared to 4.4 x 5.5 cm on the prior exam the more inferior lesion measures 4.3 x 4.7 cm which is also is essent ially stable. The left kidney has been removed. Small periaortic and aortocaval lymph nodes are stable. CT of pelvis performed with contrast enhancement: A Breen catheter is present within the bladder. The re is no evidence of adenopathy or mass. Review of osseous structures show no lytic or blastic bony changes. IMPRESSION: Essentially stable exam. Some minimal increase in size of the right infrahilar nodes coul d just be technique related. There has been a slight interval decrease in size of the left-sided mediastinal node located posterior to the pulmonary artery but otherwise stable mediastinal and hilar nodes. In addition the right adrenal lesion and right renal lesions are essentially stable.
[2019-02-20] MEDS ORDERED: Iopamidol-370 76% 500 ML 1 ML ONE (16:26)
--- NOTE | 2019-02-20 17:40 | CON ---
DATE OF CONSULTATION: REASON FOR CONSULTATION: Renal cell carcinoma. HISTORY OF PRESENT ILLNESS: A 63-year-old female with stage IV renal cell carcinoma with metastasis along the adrenal gland, pancreas, thyroid, and brain, presenting to the hospital with altered mental status. The patient is currently on immunotherapy with Opdivo and last received treatment on February 10. According to family, the patient is eating very little for the last couple of weeks and is not eating anything in last few days prior to admission or drinking any fluids. Upon presentation to the hospital, she was found to have hyponatremia of 122, which was a change from 132 the week prior. She has a history of severe hyponatremia down to 114 in November. She has a history of brain mass seen in November and received stereotactic radiosurgery finishing on December 11, 2018. At that time, her brain lesion was 2.2 x 1.8 x 1.5 cm in the splenium, corpus callosum, and upon presentation to the hospital, she had a repeat MRI showing this lesion to be 2.4 x 1.[address] South has reviewed this MRI and believes the enlargement is unlikely to be treatment effect as it has only been a couple of months since the SRS. The enlargement is minimal and I do not think this is contributing to her altered mental status, which is likely due to hyponatremia. Infectious workup so far has been unremarkable. The patient is not very arousable, however, does awake upon touch and states that she has dry mouth, but is not able to provide any further history and falls back asleep frequently during conversation. REVIEW OF SYSTEMS: A ten-point review of systems as per HPI and not accessible at this moment due to patient's condition. PAST MEDICAL HISTORY: Renal cell carcinoma, hypertension, hyperlipidemia, and hypothyroidism. PAST SURGICAL HISTORY: and nephrectomy on the left side 15 years ago. SOCIAL HISTORY: She is a current smoker. ALLERGIES: NO KNOWN DRUG ALLERGIES. CURRENT MEDICATIONS: Reviewed. PHYSICAL EXAMINATION: VITAL SIGNS: Temperature 98.6, pulse rate 97, blood pressure 104/66, respirations are 19 to 23, and saturating 96% to 99% on room air. GENERAL APPEARANCE: The patient is lying in bed, asleep. Arousable only to touch. HEENT: Normocephalic and atraumatic. LUNGS: Respirations are nonlabored and clear to auscultation. CARDIAC: S1 and S2. Regular rhythm and rate. ABDOMEN: Soft, nondistended, and nontender. SKIN: No rash. PSYCHIATRIC: Normal affect, but difficult to assess due to the patient's condition. NEUROLOGIC: The patient is arousable to touch, but not oriented. Cranial nerves II through XII are grossly intact. LABORATORY DATA: White blood cells 5.2, hemoglobin 12.8, and platelets are 280. Sodium was 122 on admission, currently 126; chloride 97, potassium 3.9. Carbon dioxide was 23 on admission, down to 14, and currently 21. BUN 15 and creatinine 0.69. Cortisol less than 1. IMAGING DATA: MRI brain shows a 2.4 x 1.7 x 2.0 mass in the splenium of the corpus callosum with central necrosis and stable chronic hemorrhage. No new areas of brain mets. ASSESSMENT AND PLAN: A 63-year-old female with metastatic renal cell carcinoma, currently on immunotherapy, presenting with altered mental status, found to be hyponatremic and with a mild increase in size in her known brain mass. I suspect her altered mental status is secondary to hyponatremia given minimal increase in brain mass without new lesions. Minimal increase in her brain mass could be secondary to treatment effect, but this is less likely and could be progression. However, she has already had radiation, which cannot be repeated at this time. Recommend continuing tolvaptan and other treatment for hyponatremia as per Dr. Vences. Continue antibiotics while infectious workup is pending. To rule out any other progression of the disease, we will get a CAT scan of the chest, abdomen, and pelvis and bone scan and if she has clear progression, then would discontinue immunotherapy and consider oral TKI therapy, however, she may also be appropriate for hospice and will discuss this with her family. Agree with palliative care consult. We will follow along with you. Job ID: [id number]
[2019-02-20] MEDS: Sodium Chloride 0.9% 1,000 ML IV SCH (18:04)
--- NOTE | 2019-02-20 19:11 | PRG ---
DATE OF SERVICE: 02/20/2019 SUBJECTIVE: The patient was seen and examined, hemodynamically labile. OBJECTIVE: VITAL SIGNS: Afebrile, temperature 98.6, pulse 97, respiratory rate of 19, and blood pressure 104/66. HEENT: Unremarkable. CARDIOVASCULAR SYSTEM: First and second heart sounds were heard. RESPIRATORY SYSTEM: Clear to auscultation. DIGESTIVE SYSTEM: Revealed a benign abdomen. EXTREMITIES: No peripheral edema. SKIN: No new gross rash. LYMPHATICS: No peripheral lymphadenopathy. LABORATORY INVESTIGATION: Showed a sodium at 126. IMPRESSION: Hyponatremia in the context of syndrome of inappropriate antidiuretic hormone secretion. PLAN: 1. We will continue with anti-ADH treatment for now. 2. Further management to be dependent on the clinical course. Job ID: [id number]
[2019-02-20] MEDS: traZODone HCl 50 MG TAB PO SCH (20:23)
[2019-02-21] MEDS: Dexamethasone 4 mg/ml Vial SLOW IVP SCH ×2 (02:18→09:18)
[2019-02-21] MEDS: Cefepime 1 GM in Sodium Chloride 0.9% 100 ML IVPB SCH ×3 (03:00→21:45)
[2019-02-21 05:34] LABS: #Lymphocytes 0.5 thou/uL (1.20-3.40); #Monocytes 0.1 thou/uL (0.11-0.59); #Neutrophils 1.6 thou/uL (1.40-6.50); %Basophils 0.8 % (0.0-1.0); %Eosinophils 0.2 % (0.0-10.0); %Lymphocytes 20.8 % (21.0-51.0); %Monocytes 5.5 % (0.0-10.0); %Neutrophils 72.8 % (42.0-75.0); Hemoglobin 10.6 g/dL (12.0-16.0); Mean Corpuscular HGB CONC 34.7 g/dL (32.0-36.0); Mean Corpuscular Hemoglobin 30.6 pg (27.0-31.0); Mean Corpuscular Volume 88.3 fL (78.0-98.0); Mean Platelet Volume 6.5 fL (7.4-10.4); Platelet Count 265 thou/uL (130-400); RBC Distribution Width 12.9 % (11.5-14.5); Red Blood Cell (RBC) Count 3.48 mill/uL (4.20-5.40); White Blood Cell (WBC) Count 2.2 thou/uL (4.8-10.8)
[2019-02-21] MEDS: Levothyroxine Sodium 100 MCG TAB PO SCH (05:42)
[2019-02-21 05:57] LABS: ALT (SGPT) 8 U/L (8-55); AST (SGOT) 20 U/L (5-34); Albumin 3.4 g/dL (3.4-4.8); Alkaline Phosphatase 51 U/L (40-110); Anion Gap 13 mmol/L (10-20); BUN (Urea Nitrogen) 9 mg/dL (9.8-20.1); Bilirubin, Total 0.3 mg/dL (0.2-1.2); Calc. Creatinine Clearance 108 mL/min (70-130); Calcium 9.3 mg/dL (7.8-10.44); Carbon Dioxide 19 mmol/L (23-31); Chloride 108 mmol/L (98-107); Estimated GFR-MDRD Greater than 90; Globulin 2.3 g/dL (2.4-3.5); Glucose 143 mg/dL (80-115); Protein, Total 5.7 g/dL (6.0-8.3); Sodium 136 mmol/L (136-145)
[2019-02-21 06:14] LABS: Free T4 (Free Thyroxine) 1.15 ng/dL (0.70-1.48); Thyroid Stimulating Hormone 1.9766 uIU/mL (0.35-4.94)
[2019-02-21] MEDS: Dronabinol 2.5 MG CAP PO SCH ×3 (07:30→17:23)
[2019-02-21] MEDS: ALPRAZolam 0.5 MG TAB PO SCH ×2 (09:17→21:46)
[2019-02-21] MEDS: Tolvaptan 15 MG TAB PO SCH (09:17)
[2019-02-21] MEDS: Mirtazapine 30 MG TAB PO SCH (09:17)
[2019-02-21] MEDS: Sodium Chloride 0.9% 1,000 ML IV SCH ×2 (09:18→17:18)
[2019-02-21] MEDS: Enoxaparin Sodium 40 MG/0.4 ML SYRINGE SC SCH (09:18)
--- NOTE | 2019-02-21 10:04 | PDOC.MOPN ---
Interval History: Pt still very confused, but is sitting up in chair today. She repeats the same thing frequently, forgets she has cancer, thinks she had a stroke. Spoke with daughter at bedside. - Vital Signs Vital Signs: Vital Signs (12 hours) Temp 02/21/19 04:00 98.3 F 02/21/19 00:00 98.3 F Weight Admit Weight 150 lb 14.4 oz Weight 155 lb 3.287 oz Most Recent Monitor Data Heart Rate from ECG 97 NIBP 134/87 NIBP BP-Mean 102 Respiration from ECG 17 SpO2 100 - Physical Exam General: Alert, Cooperative HEENT: Atraumatic Lungs: Normal air movement Cardiovascular: Regular rate Abdomen: Soft, No tenderness Neurological: Cranial nerves 3-12 NL Psych/Mental Status: Other (Not oriented to place or time) - Labs Result Diagrams: 02/21/19 05:02 02/21/19 05:02 Lab results: Laboratory Results - last 24 hr 02/21/19 05:02: Free T4 1.15, Free T3 1.91, TSH 3rd Generation 1.9766 02/21/19 05:02: WBC 2.2 L, RBC 3.48 L, Hgb 10.6 L, Hct 30.7 L, MCV 88.3, MCH 30.6, MCHC 34.7, RDW 12.9, Plt Count 265, MPV 6.5 L, Neutrophils % 72.8, Lymphocytes % 20.8 L, Monocytes % 5.5, Eosinophils % 0.2, Basophils % 0.8, Neutrophils # 1.6, Lymphocytes # 0.5 L, Monocytes # 0.1 L, Eosinophils # 0.0, Basophils # 0.0 02/21/19 05:02: Sodium 136, Potassium 4.0, Chloride 108 H, Carbon Dioxide 19 L, Anion Gap 13, BUN 9 L, Creatinine 0.61, Estimated GFR (MDRD) Greater than 90, Glucose 143 H, Calcium 9.3, Total Bilirubin 0.3, AST 20, ALT 8, Alkaline Phosphatase 51, Serum Total Protein 5.7 L, Albumin 3.4, Globulin 2.3 L, Albumin/ Globulin Ratio 1.5 A/P - Problem (1) Acute metabolic encephalopathy Current Visit: No Code(s): G93.41 - METABOLIC ENCEPHALOPATHY Status: Acute (2) Adrenal insufficiency Current Visit: No Code(s): E27.40 - UNSPECIFIED ADRENOCORTICAL INSUFFICIENCY Status: Acute (3) Metastatic renal cell carcinoma Current Visit: No Code(s): C64.9 - MALIGNANT NEOPLASM OF UNSP KIDNEY, EXCEPT RENAL PELVIS Status: Chronic (4) Hyponatremia Current Visit: No Code(s): E87.1 - HYPO-OSMOLALITY AND HYPONATREMIA Status: Resolved - Plan Plan: # Hyponatremia cont tx as per nephrology - sodium 136 today, monitor for stability # Adrenal Insufficiency cont steroids, will require slow taper and may require indefinitely # Hypothyroidism cont synthroid - TSH normal # RCC -- MRI-Brain: pseduoprogression/tx effect vs true progression - increase by only a few mm -- CT-CAP: diffuse metastatic disease is stable f/u bone scan if pt recovers from acute metabolic encephalopathy then will plan to continue opdivo +/- oral TKI therapy
--- NOTE | 2019-02-21 13:38 | PRG ---
DATE OF SERVICE: 02/21/2019 SERVICE: Pulmonary Medicine. INTERVAL HISTORY: The patient is doing fine from respiratory standpoint. By rehydrating her yesterday, her sodium corrected itself. She denies any current chest discomfort, nausea, vomiting, fevers, or chills. Her brain is working much better today. She feels like she has a little bit better energy too. PHYSICAL EXAMINATION: VITAL SIGNS: Afebrile, pulse 93, blood pressure 140/75, respirations 23, and saturation 99%, currently on 2 L nasal cannula. GENERAL: The patient is awake and alert, in no apparent distress. LUNGS: Very good air entry. No prolonged expiratory phase or wheezing is appreciated. HEART: Normal rate. Regular. ABDOMEN: Soft, nontender, and nondistended. Bowel sounds are positive. MUSCULOSKELETAL: No cyanosis or clubbing. No pitting in the bilateral lower extremities. NEUROLOGIC: Grossly nonfocal. LABORATORY DATA: WBC 2.2, hemoglobin 10.6, and platelets 265,000. Sodium 136, chloride 108. Bicarb 19, though anion gap has not changed. Creatinine 0.6. Liver function studies are unremarkable. Her cortisol level is below the assay limit of 1. ASSESSMENT: 1. Adrenal insufficiency (side effect of Opdivo versus mass effect from COYOTE HUNTER lesion versus rapid tapering of steroids). 2. Systemic inflammatory response syndrome, resolved. 3. Renal cell carcinoma, metastatic. 4. Hyponatremia, resolved. DISCUSSION AND PLAN: I will give the patient some normal saline at 75 mL/h. Hopefully, this will augment her appetite. We will start deescalating her steroids as I do not want to have a significant impact on the efficacy of her immune therapy. I will put her on a mineralocorticoid as well as a glucocorticoid at the lowest dose that she can tolerate. Pulmonary/Critical Care will continue to follow. Job ID: [id number]
--- NOTE | 2019-02-21 13:49 | NM ---
Exam: Total body bone scan: HISTORY: Renal cell carcinoma COMPARISON: 12/01/2018 No scan evidence for metastasis. Status post left nephrectomy with some stasis in the upper pole of t he right kidney. Bladder activity is noted. IMPRESSION: No scan evidence for metastasis.
[2019-02-21] MEDS: Hydrocortisone 10 mg Tablet PO SCH (17:28)
[2019-02-21] MEDS: traZODone HCl 50 MG TAB PO SCH (21:46)
[2019-02-22] MEDS: Cefepime 1 GM in Sodium Chloride 0.9% 100 ML IVPB SCH ×2 (04:35→12:02)
[2019-02-22] MEDS: Fludrocortisone Acetate 0.1 MG TAB PO SCH (05:57)
[2019-02-22] MEDS: Levothyroxine Sodium 100 MCG TAB PO SCH (05:57)
[2019-02-22] MEDS: Hydrocortisone 10 mg Tablet PO SCH ×3 (07:10→18:08)
[2019-02-22 07:37] LABS: Phosphorus 2.3 mg/dL (2.3-4.7)
[2019-02-22 07:38] LABS: Anion Gap 12 mmol/L (10-20); BUN (Urea Nitrogen) 12 mg/dL (9.8-20.1); Calc. Creatinine Clearance 109 mL/min (70-130); Calcium 9.1 mg/dL (7.8-10.44); Carbon Dioxide 19 mmol/L (23-31); Chloride 112 mmol/L (98-107); Estimated GFR-MDRD Greater than 90; Glucose 115 mg/dL (80-115); Magnesium 1.6 mg/dL (1.6-2.6); Potassium 3.9 mmol/L (3.5-5.1); Sodium 139 mmol/L (136-145)
[2019-02-22] MEDS: Enoxaparin Sodium 40 MG/0.4 ML SYRINGE SC SCH (08:03)
[2019-02-22] MEDS: Dronabinol 2.5 MG CAP PO SCH ×2 (08:03→16:46)
[2019-02-22] MEDS: ALPRAZolam 0.5 MG TAB PO SCH ×2 (08:03→20:58)
[2019-02-22] MEDS: Mirtazapine 30 MG TAB PO SCH (08:04)
[2019-02-22] MEDS: Sodium Chloride 0.9% 1,000 ML IV SCH (08:05)
--- NOTE | 2019-02-22 11:03 | PDOC.MOPN ---
Interval History: Pt feeling ok, still very confused. Talks about parking in front of the police station, then says she is in [place]. Spoke with daughter at bedside. - Vital Signs Vital Signs: Vital Signs (12 hours) Temp Pulse Resp BP Pulse Ox 02/22/19 08:00 95 02/22/19 07:58 97.7 F 79 16 119/71 95 02/22/19 03:55 98.5 F 79 20 118/58 L 95 02/22/19 00:00 98.5 F 82 20 117/68 92 L Weight Admit Weight 150 lb 14.4 oz Weight 149 lb 9.6 oz Most Recent Monitor Data Heart Rate from ECG 82 NIBP 132/74 NIBP BP-Mean 93 Respiration from ECG 24 SpO2 98 - Physical Exam General: Alert HEENT: Atraumatic Lungs: Clear to auscultation Cardiovascular: Regular rate Abdomen: Soft, No tenderness Psych/Mental Status: Other (Oriented to person but not time or place) - Labs Result Diagrams: 02/21/19 05:02 02/22/19 07:03 Lab results: Laboratory Results - last 24 hr 02/22/19 07:03: Phosphorus 2.3 02/22/19 07:03: Sodium 139, Potassium 3.9, Chloride 112 H, Carbon Dioxide 19 L, Anion Gap 12, BUN 12, Creatinine 0.58 L, Estimated GFR (MDRD) Greater than 90, Glucose 115, Calcium 9.1, Magnesium 1.6 A/P - Problem (1) Acute metabolic encephalopathy Current Visit: No Code(s): G93.41 - METABOLIC ENCEPHALOPATHY Status: Acute (2) Adrenal insufficiency Current Visit: No Code(s): E27.40 - UNSPECIFIED ADRENOCORTICAL INSUFFICIENCY Status: Acute (3) Metastatic renal cell carcinoma Current Visit: No Code(s): C64.9 - MALIGNANT NEOPLASM OF UNSP KIDNEY, EXCEPT RENAL PELVIS Status: Chronic (4) Hyponatremia Current Visit: No Code(s): E87.1 - HYPO-OSMOLALITY AND HYPONATREMIA Status: Resolved - Plan Plan: -- Pt still confused after correction of sodium and now on steroids, no infectious source: may be new normal from brain mass which can not be re- irradiated or resected at this time; otherwise, all systemic metastases are stable on restaging scans cont fludrocortisone, hydrocortisone cont Marinol for appetite PT c/s Plan to continue Opdivo at discharge and consider adding oral TKI now vs later at progression
--- NOTE | 2019-02-22 18:13 | PRG ---
DATE OF SERVICE: 02/22/2019 SERVICE: Pulmonary Medicine. INTERVAL HISTORY: The patient is doing really well from respiratory standpoint. Breathing comfortably. She has no complaints of chest discomfort, nausea, or vomiting. She is a little bit confused today. Otherwise, there has been no interval change to her condition. PHYSICAL EXAMINATION: VITAL SIGNS: Afebrile, pulse 76, blood pressure 154/78, respirations 20, and saturation 96% on room air. GENERAL: The patient is awake and alert, in no apparent distress. LUNGS: Very good air entry. No prolonged expiratory phase or wheezing is appreciated. HEART: Normal rate and regular. ABDOMEN: Soft, nontender, and nondistended. Bowel sounds are positive. MUSCULOSKELETAL: No cyanosis or clubbing. There is no pitting in the bilateral lower extremities. NEUROLOGIC: Grossly nonfocal. LABORATORY DATA: Basic metabolic profile is unremarkable. Chloride and sodium continue to trend upward. Magnesium 1.6 and phosphorus 2.3. All culture results remain negative to date. ASSESSMENT: 1. Adrenal insufficiency. 2. Systemic inflammatory response syndrome, resolved. 3. Renal cell carcinoma, metastatic. 4. Hyponatremia, resolved. 5. Hypomagnesemia. DISCUSSION AND PLAN: We will replace her magnesium. IV fluids will be interrupted as the patient's appetite is quite voracious. She has no further requirements for inpatient Pulmonary/Critical Care opinion, and I will sign off. Please call with additional questions or concerns through time. Job ID: [id number]
[2019-02-22] MEDS ORDERED: Magnesium 2 GM/50 ML 2 GM in Premix Bag 1 BAG IVPB SCH (18:30)
[2019-02-22] MEDS: traZODone HCl 50 MG TAB PO SCH (20:56)
--- NOTE | 2019-02-22 22:06 | PRG ---
DATE OF SERVICE: 02/22/2019 SUBJECTIVE: The patient is seen and examined with no new complaint, noted with the following vital signs. OBJECTIVE: VITAL SIGNS: Afebrile, temperature 98.3, pulse 76, respiratory rate of 20, O2 saturations are 96%, and blood pressure 154/78. HEENT: Unremarkable. CARDIOVASCULAR SYSTEM: First and second heart sounds were heard. RESPIRATORY SYSTEM: Clear to auscultation. DIGESTIVE: Revealed a benign abdomen. Positive bowel sounds. EXTREMITIES: No peripheral edema. SKIN: No new gross rash lymphatics no peripheral lymphadenopathy. LABORATORY INVESTIGATION: Showed a sodium of 139. 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 PLAN: Continue current renal supportive measures. Job ID: [id number]
[2019-02-23] MEDS: Levothyroxine Sodium 100 MCG TAB PO SCH (05:00)
[2019-02-23 05:43] LABS: #Lymphocytes 1.5 thou/uL (1.20-3.40); #Monocytes 0.7 thou/uL (0.11-0.59); #Neutrophils 4.7 thou/uL (1.40-6.50); %Basophils 0.1 % (0.0-1.0); %Eosinophils 0.5 % (0.0-10.0); %Lymphocytes 21.8 % (21.0-51.0); %Monocytes 10.2 % (0.0-10.0); %Neutrophils 67.4 % (42.0-75.0); Mean Corpuscular HGB CONC 34.2 g/dL (32.0-36.0); Mean Corpuscular Hemoglobin 30.3 pg (27.0-31.0); Mean Corpuscular Volume 88.5 fL (78.0-98.0); Mean Platelet Volume 6.6 fL (7.4-10.4); Platelet Count 361 thou/uL (130-400); White Blood Cell (WBC) Count 6.9 thou/uL (4.8-10.8)
[2019-02-23 06:08] LABS: Anion Gap 11 mmol/L (10-20); BUN (Urea Nitrogen) 15 mg/dL (9.8-20.1); Calc. Creatinine Clearance 109 mL/min (70-130); Carbon Dioxide 22 mmol/L (23-31); Chloride 109 mmol/L (98-107); Estimated GFR-MDRD Greater than 90; Glucose 79 mg/dL (80-115); Potassium 3.2 mmol/L (3.5-5.1); Sodium 139 mmol/L (136-145)
[2019-02-23] MEDS: Hydrocortisone 10 mg Tablet PO SCH ×3 (06:36→18:34)
[2019-02-23] MEDS: Fludrocortisone Acetate 0.1 MG TAB PO SCH (06:37)
[2019-02-23] MEDS: ALPRAZolam 0.5 MG TAB PO SCH ×2 (07:56→21:24)
[2019-02-23] MEDS: Enoxaparin Sodium 40 MG/0.4 ML SYRINGE SC SCH (07:56)
[2019-02-23] MEDS: Dronabinol 2.5 MG CAP PO SCH ×2 (07:56→17:00)
--- NOTE | 2019-02-23 09:04 | PRG ---
DATE OF SERVICE: 02/21/2019 SUBJECTIVE: Noted with the following vital signs. OBJECTIVE: VITAL SIGNS: Afebrile, temperature 98.5, pulse of 87, respiratory rate of 20, O2 saturation 97%, blood pressure 108/66. HEENT: Unremarkable. CARDIOVASCULAR SYSTEM: First and second heart sounds were heard. RESPIRATORY SYSTEM: Clear to auscultation. DIGESTIVE SYSTEM: Revealed a benign abdomen. EXTREMITIES: No peripheral edema. SKIN: No new gross rash. LYMPHATICS: No peripheral lymphadenopathy. IMPRESSION: Hyponatremia in the context of syndrome of inappropriate antidiuretic hormone secretion seems to have improved to a sodium of 136. PLAN: We will hold off tolvaptan for now and follow the sodium level. discontinuation of this medication and the patient's sodium will begin to drift down once again, . Job ID: [id number]
[2019-02-23] MEDS: Potassium Chloride 20 MEQ TAB PO SCH ×3 (11:52→18:36)
--- NOTE | 2019-02-23 12:00 | PDOC.PALCO ---
Palliative Care Consult - Consult Details Requesting Physician: Dr Villalobos Reason for Consult: goals of care, advance directives assistance, family support Family Members Present: Daughter Ayesha and grandmichael Paz - Pertinent HPI 63 year old female who has metastatic renal cell carcinoma with mets to the brain, lungs and post chemo and radiation who presented to the emergency room with confusion, lethargy and weakness. Emergency room evaluation identified hyponatremia, admitted for medical management. - Pertinent PMH Hypertension, hyperlipidemia, hypothyroidism, anxiety, insomnia, metastatic renal carcinoma with mets to the brain and lungs. - Social History Smoking Status: Current every day smoker Smoking: greater than 1 pack/day Alcohol Use: pt denies any use Drug Use History: none Living Situation: - Medications MAR Reviewed: Yes - Allergies Allergies/Adverse Reactions: Allergies Allergy/AdvReac Type Severity Reaction Status Date / Time No Known Allergies Allergy Verified 02/17/19 19:52 - Subjective Awake, alert, states she continues with confusion and weakness. Remains with fluctuating appetite. Denies nausea, vomiting, diarrhea, incontinence, headache , cough, shortness of breath, chest tightness or discomfort, blurry vision. - Objective Vital Signs: Vital Signs - Most Recent Temp Pulse Resp BP Pulse Ox 97.5 F L 87 20 120/76 95 02/23/19 07:26 02/23/19 07:26 02/23/19 07:26 02/23/19 07:26 02/23/19 07:26 - Physical Exam Constitutional: confusion HEENT: PERRLA, moist MMs, EOMI Respiratory: no wheezing, unlabored breathing Cardiovascular: RRR, no significant murmur Gastrointestinal: soft, non-tender, positive bowel sounds Musculoskeletal: pulses present Neurological: moves all 4 limbs Psychiatric: normal mood, A&O x 3 Deviation from normal: Intermittant confusion Skin: no rash, cap refill <2 seconds - Problem List (1) Physical deconditioning Code(s): R53.81 - OTHER MALAISE Current Visit: Yes Status: Acute (2) Brain lesion Code(s): G93.9 - DISORDER OF BRAIN, UNSPECIFIED Current Visit: No Status: Acute (3) Palliative care encounter Code(s): Z51.5 - ENCOUNTER FOR PALLIATIVE CARE Current Visit: No Status: Acute (4) Metastatic renal cell carcinoma Code(s): C64.9 - MALIGNANT NEOPLASM OF UNSP KIDNEY, EXCEPT RENAL PELVIS Current Visit: No Status: Chronic - Plan/Recommendations Plan: *Continues on Robinul for appetite stimulant, also taking steroids. Discussed avoiding foods that have offensive texture/smell. Frequent small portions. *Encouraged patient and family to discuss goals of care/wishes in relation to disease trajectory, [facility] *Patient returning home, recommend Home Health for PT / [facility] already in home as patient receiving home health services *Discussed measures to positively impact confusion. -Markers in bathroom to write on [employer] In[employer] size "post its" that can daily give date/who is caring for patient ect. [60] minutes spent on this encounter with >50% of the time in counseling and coordination of care. Thank you for this very appropriate consult.
--- NOTE | 2019-02-23 14:16 | PRG ---
DATE OF SERVICE: 02/23/2019 SUBJECTIVE: Noted with the following vital signs. OBJECTIVE: VITAL SIGNS: Afebrile, temperature 97.5, pulse 87, respiratory rate of 20, O2 saturation of 95%, and blood pressure 120/76. HEENT: Unremarkable. CARDIOVASCULAR SYSTEM: First and second heart sounds were heard. RESPIRATORY SYSTEM: Clear to auscultation. DIGESTIVE SYSTEM: Revealed a benign abdomen. EXTREMITIES: No peripheral edema. SKIN: No new gross rash. LYMPHATICS: No peripheral lymphadenopathy. LABORATORY INVESTIGATION: Showed a potassium of 3.2, sodium of 139. IMPRESSION: 1. 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 2. Hypokalemia. PLAN: 1. Replete the low potassium. 2. Continue high-protein intake. 3. Further management to be dependent on the clinical course. The patient is currently off tolvaptan. Job ID: [id number]
--- NOTE | 2019-02-23 14:56 | PDOC.MOPN ---
Interval History: pleasantly confused. Daughter at bedside. - Vital Signs Vital Signs: Vital Signs (12 hours) Temp Pulse Resp BP Pulse Ox 02/23/19 08:00 95 02/23/19 07:26 97.5 F L 87 20 120/76 95 02/23/19 03:45 98.1 F 87 20 123/78 93 L Weight Admit Weight 150 lb 14.4 oz Weight 149 lb 9.6 oz Most Recent Monitor Data Heart Rate from ECG 82 NIBP 132/74 NIBP BP-Mean 93 Respiration from ECG 24 SpO2 98 - Physical Exam General: Cooperative Lungs: Clear to auscultation Cardiovascular: Regular rate Abdomen: Normal bowel sounds Extremities: No clubbing, No cyanosis, No edema, Normal pulses, No tenderness/ swelling Neurological: Normal speech - Labs Result Diagrams: 02/23/19 04:46 02/23/19 04:46 Lab results: Laboratory Results - last 24 hr 02/23/19 04:46: WBC 6.9, RBC 3.30 L, Hgb 10.0 L, Hct 29.2 L, MCV 88.5, MCH 30.3 , MCHC 34.2, RDW 13.0, Plt Count 361, MPV 6.6 L, Neutrophils % 67.4, Lymphocytes % 21.8, Monocytes % 10.2 H, Eosinophils % 0.5, Basophils % 0.1, Neutrophils # 4.7, Lymphocytes # 1.5, Monocytes # 0.7 H, Eosinophils # 0.0, Basophils # 0.0 02/23/19 04:46: Sodium 139, Potassium 3.2 L, Chloride 109 H, Carbon Dioxide 22 L , Anion Gap 11, BUN 15, Creatinine 0.58 L, Estimated GFR (MDRD) Greater than 90 , Glucose 79 L, Calcium 9.0 Status: lab reviewed by me A/P - Problem (1) Brain lesion Current Visit: No Code(s): G93.9 - DISORDER OF BRAIN, UNSPECIFIED Status: Acute (2) Metastatic renal cell carcinoma Current Visit: No Code(s): C64.9 - MALIGNANT NEOPLASM OF UNSP KIDNEY, EXCEPT RENAL PELVIS Status: Chronic - Plan Plan: PT to work with patient. Home when ok with consultants follow-up clinic to continue treatment.
[2019-02-23] MEDS: traZODone HCl 50 MG TAB PO SCH (21:24)
[2019-02-24] MEDS: Levothyroxine Sodium 100 MCG TAB PO SCH (05:43)
[2019-02-24 05:51] LABS: #Eosinphils 0.1 thou/uL (0.0-0.7); #Monocytes 0.8 thou/uL (0.11-0.59); #Neutrophils 3.1 thou/uL (1.40-6.50); %Basophils 0.1 % (0.0-1.0); %Eosinophils 1.5 % (0.0-10.0); %Lymphocytes 33.1 % (21.0-51.0); %Monocytes 13.3 % (0.0-10.0); Hemoglobin 10.1 g/dL (12.0-16.0); Mean Corpuscular HGB CONC 34.2 g/dL (32.0-36.0); Mean Corpuscular Hemoglobin 30.2 pg (27.0-31.0); Mean Corpuscular Volume 88.4 fL (78.0-98.0); Mean Platelet Volume 6.5 fL (7.4-10.4); Platelet Count 375 thou/uL (130-400); Red Blood Cell (RBC) Count 3.34 mill/uL (4.20-5.40); White Blood Cell (WBC) Count 5.9 thou/uL (4.8-10.8)
[2019-02-24] MEDS: Fludrocortisone Acetate 0.1 MG TAB PO SCH (06:02)
[2019-02-24] MEDS: Hydrocortisone 10 mg Tablet PO SCH ×3 (06:02→16:28)
[2019-02-24 06:28] LABS: Anion Gap 10 mmol/L (10-20); BUN (Urea Nitrogen) 15 mg/dL (9.8-20.1); Calc. Creatinine Clearance 99 mL/min (70-130); Calcium 8.9 mg/dL (7.8-10.44); Carbon Dioxide 25 mmol/L (23-31); Chloride 108 mmol/L (98-107); Estimated GFR-MDRD Greater than 90; Glucose 82 mg/dL (80-115); Potassium 4.1 mmol/L (3.5-5.1); Sodium 139 mmol/L (136-145)
[2019-02-24] MEDS: ALPRAZolam 0.5 MG TAB PO SCH ×2 (07:53→20:21)
[2019-02-24] MEDS: Enoxaparin Sodium 40 MG/0.4 ML SYRINGE SC SCH (07:54)
[2019-02-24] MEDS: Dronabinol 2.5 MG CAP PO SCH ×2 (08:40→16:28)
[2019-02-24] MEDS: Acetaminophen 325 MG TAB PO PRN (09:18)
--- NOTE | 2019-02-24 16:39 | PDOC.MOPN ---
Interval History: much more alert today. Oriented. - Vital Signs Vital Signs: Vital Signs (12 hours) Temp Pulse Resp BP Pulse Ox 02/24/19 07:59 98.1 F 92 16 111/53 L 96 Weight Admit Weight 150 lb 14.4 oz Weight 149 lb 9.6 oz Most Recent Monitor Data Heart Rate from ECG 82 NIBP 132/74 NIBP BP-Mean 93 Respiration from ECG 24 SpO2 98 - Physical Exam General: Alert, Cooperative, No acute distress HEENT: Atraumatic, PERRLA, EOMI, Mucous membr. moist/pink Lungs: Clear to auscultation, Normal air movement Cardiovascular: Regular rate, Normal S1, Normal S2, No murmurs, Gallops, Rubs Abdomen: Normal bowel sounds, Soft, No tenderness, No hepatospenomegaly, No masses Skin: No rashes Neurological: Normal speech Psych/Mental Status: Mood NL - Labs Result Diagrams: 02/24/19 05:06 02/24/19 05:06 Lab results: Laboratory Results - last 24 hr 02/24/19 05:06: WBC 5.9, RBC 3.34 L, Hgb 10.1 L, Hct 29.5 L, MCV 88.4, MCH 30.2 , MCHC 34.2, RDW 13.0, Plt Count 375, MPV 6.5 L, Neutrophils % 52.0, Lymphocytes % 33.1, Monocytes % 13.3 H, Eosinophils % 1.5, Basophils % 0.1, Neutrophils # 3.1, Lymphocytes # 2.0, Monocytes # 0.8 H, Eosinophils # 0.1, Basophils # 0.0 02/24/19 05:06: Sodium 139, Potassium 4.1, Chloride 108 H, Carbon Dioxide 25, Anion Gap 10, BUN 15, Creatinine 0.64, Estimated GFR (MDRD) Greater than 90, Glucose 82, Calcium 8.9 Status: lab reviewed by me A/P - Problem (1) Brain lesion Current Visit: No Code(s): G93.9 - DISORDER OF BRAIN, UNSPECIFIED Status: Acute (2) Metastatic renal cell carcinoma Current Visit: No Code(s): C64.9 - MALIGNANT NEOPLASM OF UNSP KIDNEY, EXCEPT RENAL PELVIS Status: Chronic - Plan Plan: Continue hydrocortisone po. Will adjust dose for home Ok to dc home in am Follow-up Dr. Garrett next week to discuss resuming treatment and options.
--- NOTE | 2019-02-24 18:47 | PRG ---
DATE OF SERVICE: 02/24/2019 SUBJECTIVE: The patient noted with the following vital signs. OBJECTIVE: VITAL SIGNS: Afebrile, temperature 98.1, pulse 92, respiratory rate of 16, O2 saturation 96%, and blood pressure 111/63. HEENT: Unremarkable. CARDIOVASCULAR: First and second heart sounds were heard. RESPIRATORY: Clear to auscultation. DIGESTIVE: Revealed a benign abdomen. EXTREMITIES: No peripheral edema. SKIN: No new gross rash. LYMPHATICS: No peripheral lymphadenopathy. LABORATORY INVESTIGATION: Significant for sodium of 139, potassium 4.1. IMPRESSION: 1. Hyponatremia in the context of syndrome of inappropriate antidiuretic hormone secretion, responded well to anti-ADH hormone sarahi. 2. Hypokalemia, resolved. PLAN: We will continue with current supportive measures. Job ID: [id number]
[2019-02-24] MEDS: traZODone HCl 50 MG TAB PO SCH (20:21)
[2019-02-25] MEDS: Levothyroxine Sodium 100 MCG TAB PO SCH (06:04)
[2019-02-25] MEDS: Fludrocortisone Acetate 0.1 MG TAB PO SCH (06:41)
[2019-02-25] MEDS: Hydrocortisone 10 mg Tablet PO SCH (06:41)
[2019-02-25 07:39] VITALS: BP 112/77; TEMP 98.3
[2019-02-25] MEDS: ALPRAZolam 0.5 MG TAB PO SCH (08:18)
[2019-02-25] MEDS: Dronabinol 2.5 MG CAP PO SCH (08:18)
[2019-02-25] MEDS: Enoxaparin Sodium 40 MG/0.4 ML SYRINGE SC SCH (08:20)
--- NOTE | 2019-02-25 11:22 | PDOC.MOPN ---
Interval History: doing well - Vital Signs Vital Signs: Vital Signs (12 hours) Temp Pulse Resp BP Pulse Ox 02/25/19 07:38 98.3 F 82 18 112/77 96 Weight Admit Weight 150 lb 14.4 oz Weight 154 lb 11.2 oz Most Recent Monitor Data Heart Rate from ECG 82 NIBP 132/74 NIBP BP-Mean 93 Respiration from ECG 24 SpO2 98 - Physical Exam General: Alert, Oriented x3, No acute distress HEENT: Atraumatic, PERRLA, EOMI, Mucous membr. moist/pink Lungs: Clear to auscultation, Normal air movement Cardiovascular: Regular rate, Normal S1, Normal S2, No murmurs, Gallops, Rubs Abdomen: Normal bowel sounds, Soft, No tenderness, No hepatospenomegaly, No masses Extremities: No clubbing, No cyanosis, No edema, Normal pulses, No tenderness/ swelling Skin: No rashes, No breakdown, No significant lesion Neurological: Normal gait, Normal speech, Strength at 5/5 X4 ext, Normal tone, Sensation intact, Cranial nerves 3-12 NL, Reflexes 2+ Psych/Mental Status: Mental status NL, Mood NL - Labs Result Diagrams: 02/24/19 05:06 02/24/19 05:06 Status: lab reviewed by me A/P - Problem (1) Brain lesion Current Visit: No Code(s): G93.9 - DISORDER OF BRAIN, UNSPECIFIED Status: Acute (2) Metastatic renal cell carcinoma Current Visit: No Code(s): C64.9 - MALIGNANT NEOPLASM OF UNSP KIDNEY, EXCEPT RENAL PELVIS Status: Chronic - Plan Plan: continue hydrocortisone at home follow-up with Dr. Garrett next week.
[2019-02-25] MEDS ORDERED: Hydrocortisone 10 mg Tablet PO SCH (21:00)
--- NOTE | 2019-02-27 04:10 | PQF ---
JANE MUELLER VENKAT R MD [id number] CLINICAL DOCUMENTATION CLARIFICATION FORM: POST DISCHARGE Addendum to original discharge summary date: ____ Late entry note date: __ DATE: 02/27/19 ATTN: Rosales Hartmann Please exercise your independent, professional judgment in responding to the clarification form. Clinical indicators are provided on the bottom of this form for your review Based on your clinical judgment, can you please specify the known or suspected condition being treated, evaluated or monitored? Please check appropriate box(s): [ ] Cerebral edema [ ] Insignificant CT findings [ y] Other diagnosis please specify, mets to brain [ ] Unable to determine In addition, please specify: Present on Admission (POA): [ y ] Yes [ ] No [ ] Unable to determine For continuity of documentation, please document condition throughout progress notes and discharge summary. Thank You. 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 All Rights Reserved [email or web address] [not provided] MTDD
== END 2019-02-25 12:50 | disposition home or self-care (01) | DRG 643 ==
LOC: ERS 17:22 → T4-B 19:34 → CCU 02-19 19:34 → T4-A 02-21 16:47
PROVIDERS: ADMIT Internal Medicine; ATTEND Internal Medicine
DX: E22.2 Syndrome of inappropriate secretion of antidiuretic hormone (principal); G93.41 Metabolic encephalopathy; C64.9 Malignant neoplasm of unspecified kidney, except renal pelvis; C79.31 Secondary malignant neoplasm of brain; C77.9 Secondary and unspecified malignant neoplasm of lymph node, unspecified; C79.70 Secondary malignant neoplasm of unspecified adrenal gland; C78.89 Secondary malignant neoplasm of other digestive organs; C79.89 Secondary malignant neoplasm of other specified sites; E27.40 Unspecified adrenocortical insufficiency; R65.10 Systemic inflammatory response syndrome (SIRS) of non-infectious origin without acute organ dysfunction; C78.01 Secondary malignant neoplasm of right lung; C78.02 Secondary malignant neoplasm of left lung; Z66 Do not resuscitate; Z51.5 Encounter for palliative care; I10 Essential (primary) hypertension; E78.5 Hyperlipidemia, unspecified; E03.9 Hypothyroidism, unspecified; R63.0 Anorexia; F17.210 Nicotine dependence, cigarettes, uncomplicated; E83.42 Hypomagnesemia; E87.6 Hypokalemia; G47.00 Insomnia, unspecified; F41.9 Anxiety disorder, unspecified; Z79.890 Hormone replacement therapy; Z79.899 Other long term (current) drug therapy; Z68.23 Body mass index [BMI] 23.0-23.9, adult; Z90.5 Acquired absence of kidney
CPT/HCPCS: 36415; 51701; 70450; 70553; 71045; 71260; 74177; 78306; 80048; 80053; 81003; 82140; 82533; 82550; 83605; 83690; 83735; 83880; 83935; 84100; 84300; 84439; 84443; 84481; 84484; 85025; 87040; 87045; 87046; 87324; 87427; 87449; 87804; 90471; 90670; 93005; 94760; A4353; A9503; G0009; J0692; J1100; J1642; J1650; J3370; J3475; J3490; P9045; Q0167; Q9967